=== PATIENT | female | born 1975 | race Caucasian/White ===

== ENCOUNTER 2016-10-16 13:45 | Emergency (ER) | payer OTHER ==
[2016-10-16 14:12] VITALS: BP 145/76
--- NOTE | 2016-10-16 14:17 | UC ---
Throat Pain/Nasal Kash HPI - HPI Summary HPI Summary: right ear pain radiating in to right side of throat has been going on for 1 week , seen PCP on Sunday was told she had fluid behind her ear--offered some treatment advise but has not had time yet to start any treatments--she is concerned it is infected - History of Current Complaint Chief Complaint: UCRespiratory Stated Complaint: THROAT,EAR COMPLAINT Time Seen by Provider: 10/16/16 14:16 Hx Obtained From: Patient Hx Last Menstrual Period: 10/02/16 ?: No Onset/Duration: Sudden Onset, Lasting Days, Still Present Severity: Moderate Pain Intensity: 7 Pain Scale Used: 0-10 Numeric Cough: Nonproductive - Allergies/Home Medications Allergies/Adverse Reactions: Allergies Allergy/AdvReac Type Severity Reaction Status Date / Time Clarithromycin [From Biaxin] Allergy Unknown Verified 10/16/16 14:13 Reaction Details Penicillins Allergy Anaphylatic Verified 10/16/16 14:13 Shock Sulfamethoxazole Allergy Palpitation Verified 10/16/16 14:13 w/Trimethoprim s [From Bactrim] Home Medications: Home Medications Nadolol TAB* [Corgard TAB*] 40 mg PO DAILY 10/16/16 [History Confirmed 10/16/16] PMH/Surg Hx/FS Hx/Imm Hx Previously Healthy: No Endocrine History Of: Denies: Diabetes - gestational diabetes Cardiovascular History Of: Reports: Hypertension - history, better with until yesterday Psychological History Of: Reports: Anxiety, Depression - Surgical History Surgical History: Yes Surgery Procedure, Year, and Place: R toe surgery. - Family History Known Family History: Positive: None - Social History Occupation: Employed Full-time Lives: With Family Alcohol Use: Rare Substance Use Type: None Smoking Status (MU): Former Smoker Type: Cigarettes Amount Used/How Often: 3 cig./day Have You Smoked in the Last Year: No When Did the Patient Quit Smoking/Using Tobacco: 2 YRS - Immunization History Most Recent Influenza Vaccination: unknown Most Recent Tetanus Shot: 03/04 Most Recent Pneumonia Vaccination: never Review of Systems Constitutional: Negative Skin: Negative Eyes: Negative ENT: Sore Throat - right side, Ear Ache - right Respiratory: Negative Cardiovascular: Negative Gastrointestinal: Negative Genitourinary: Negative Motor: Negative Neurovascular: Negative Musculoskeletal: Negative Neurological: Negative Psychological: Negative All Other Systems Reviewed And Are Negative: Yes Physical Exam Triage Information Reviewed: Yes Appearance: Well-Appearing, No Pain Distress, Well-Nourished Vital Signs: Initial Vital Signs Temp 97.7 F 10/16/16 14:04 Pulse 68 10/16/16 14:04 Resp 16 10/16/16 14:04 BP 145/76 10/16/16 14:04 Pulse Ox 100 10/16/16 14:04 Vital Signs Reviewed: Yes Eye Exam: Normal Eyes: Positive: Conjunctiva Clear ENT Exam: Normal ENT: Positive: Normal ENT inspection, Hearing grossly normal, Pharynx normal, TMs normal - fluid behind right TM. Negative: Nasal congestion, Nasal drainage , Tonsillar swelling, Tonsillar exudate, Trismus, Muffled/hoarse voice Dental Exam: Normal Neck exam: Normal Neck: Positive: Supple, Nontender, No Lymphadenopathy Respiratory Exam: Normal Respiratory: Positive: Chest non-tender, Lungs clear, Normal breath sounds, No respiratory distress, No accessory muscle use Cardiovascular Exam: Normal Cardiovascular: Positive: RRR, No Murmur, Pulses Normal, Brisk Capillary Refill Musculoskeletal Exam: Normal Musculoskeletal: Positive: Strength Intact, ROM Intact, No Edema Neurological Exam: Normal Neurological: Positive: Alert, Muscle Tone Normal Psychological Exam: Normal Skin Exam: Normal Diagnostics - Laboratory Diagnostic Studies Completed/Ordered: RST (-) Throat Pain/Nasal Course/Dx - Course Assessment/Plan: beginin Nadolol!, Mucinex D, Flonase increase fluids, follow with pcp - Differential Dx/Diagnosis Differential Diagnosis/HQI/PQRI: Laryngitis, Otitis Media, Pharyngitis, Sinusitis, URI Provider Diagnoses: Eustation tube dysfunction (R), HYpertension-non adherant with treatment Discharge - Discharge Plan Condition: Stable Disposition: HOME Prescriptions: Fluticasone NASAL SPRAY 50MCG* [Flonase NASAL SPRAY 50MCG*] 2 spray BOTH NARES DAILY #1 btl Pseudoephedrine-Guaifenesin [Mucinex D 60-600 mg] 1 tab PO BID PRN #30 tab PRN Reason: congestion/ Patient Education Materials: Fluticasone (Into the nose), DASH Eating Plan (ED) , Hypertension (ED), Serous Otitis Media (ED), How to Use Nasal Stuart (ED) Referrals: Asaf Mendoza MD [Primary Care Provider] - 2 Weeks
== END 2016-10-16 15:06 | disposition home or self-care (01) ==
LOC: UCCORT 13:45
DX: H69.91 Unspecified Eustachian tube disorder, right ear (principal); I10 Essential (primary) hypertension; F41.9 Anxiety disorder, unspecified; F32.9 Major depressive disorder, single episode, unspecified; Z87.891 Personal history of nicotine dependence; Z88.3 Allergy status to other anti-infective agents; Z88.0 Allergy status to penicillin
CPT/HCPCS: 87651; 99212; G0463

== ENCOUNTER 2017-10-26 15:19 | Emergency (ER) | payer OTHER ==
[2017-10-26 15:43] VITALS: BP 144/81
--- NOTE | 2017-10-26 16:47 | UC ---
Complaint Female HPI - HPI Summary HPI Summary: Patient presents to urgent care reporting intermittent dysuria with urination for the last 2 days. Patient states she also has her period which is rather heavy. Patient states her periods have been increasingly heavy flow for the last year. Patient states she has an appointment with her [facility] scheduled in November. Patient denies nausea, lightheadedness, shortness of breath. Patient states she does not have urinary frequency or urgency. Patient does have lower abdominal cramping that she attributes to her menses. Patient denies any back pain. No fever. Patient's last UTI was greater than one year ago. Patient has been on other antibiotics including doxycycline 2 months ago for sinus infection. Patient without any other concerns this visit. She states she took Motrin this morning for discomfort. Patient has not taken anything else today. Patient denies any other vaginal discharge other than blood. No vaginal itching. Medications reviewed this visit. - History Of Current Complaint Chief Complaint: UCGU Stated Complaint: URINARY Time Seen by Provider: 10/26/17 16:18 Hx Obtained From: Patient Hx Last Menstrual Period: 10/23/17 Onset/Duration: Gradual Onset Timing: Intermittent Severity Initially: Moderate Severity Currently: Moderate Pain Intensity: 4 Pain Scale Used: 0-10 Numeric Character: Cramping Aggravating Factor(s): Urination Associated Signs And Symptoms: Positive: Vaginal Bleeding/Discharge - Allergies/Home Medications Allergies/Adverse Reactions: Allergies Allergy/AdvReac Type Severity Reaction Status Date / Time clarithromycin [From Biaxin] Allergy Unknown Verified 10/26/17 16:34 Reaction Details Penicillins Allergy Anaphylatic Verified 10/26/17 16:34 Shock sulfamethoxazole Allergy Palpitation Verified 10/26/17 16:35 [From Bactrim] s trimethoprim [From Bactrim] Allergy Palpitation Verified 10/26/17 16:35 s vancomycin Allergy Hives/Diff. Verified 10/26/17 16:40 Breathing/I tching beach Allergy Itching Uncoded 10/26/17 15:35 PMH/Surg Hx/FS Hx/Imm Hx Previously Healthy: Yes - Surgical History Surgical History: Yes Surgery Procedure, Year, and Place: R toe surgery. - Family History Known Family History: Positive: None - Social History Occupation: Employed Full-time Lives: With Family Alcohol Use: Rare Substance Use Type: None Smoking Status (MU): Former Smoker Type: Cigarettes Amount Used/How Often: 3 cig./day Have You Smoked in the Last Year: No When Did the Patient Quit Smoking/Using Tobacco: 2013 - Immunization History Most Recent Influenza Vaccination: unknown Most Recent Tetanus Shot: 03/04 Most Recent Pneumonia Vaccination: never Review of Systems Constitutional: Negative Cardiovascular: Negative Gastrointestinal: Negative Genitourinary: Dysuria, Vaginal/Penile Discharge - heavy menses All Other Systems Reviewed And Are Negative: Yes Physical Exam - Summary Physical Exam Summary: Vital Signs Reviewed: Yes A+Ox3, no distress Eyes: Conjunctiva Clear ENT: Hearing grossly normal neck: supple Respiratory: Positive: No respiratory distress, No accessory muscle use Cardiovascular: skin color reflect adequate perfusion, regular abd soft + BS no guarding, no rebound. mild lower abdominal suprapubic pain. no cva tenderness Musculoskeletal Exam: MATTHEWS x 4 without difficulty Neurological: Positive: Alert, ambulatory without difficulty Psychological: Positive: Normal Response To Family Skin: Positive: no rash, no ecchymosis Triage Information Reviewed: Yes Vital Signs: Initial Vital Signs Temp 98.5 F 10/26/17 15:36 Pulse 65 10/26/17 15:36 Resp 14 10/26/17 15:36 BP 144/81 10/26/17 15:36 Pulse Ox 100 10/26/17 15:36 Complaint Female Dx - Course Course Of Treatment: Patient presents with today N dysuria with urination. Patient also states she has heavy menses. Patient without nausea, lightheadedness, back pain, or fever. Urinalysis consistent with bladder infection. Will start Macrobid and Pyridium. Discussed with patient color change related to Pyridium. Discussed with patient regarding menstrual heavy bleeding and cramping. Patient without lightheadedness. Encouraged hydration non-caffeinated nonalcoholic. Discussed with patient it becomes lightheaded nausea or pain bleeding is uncontrolled should seek medical care emergency department by 911. Understanding and agreement with plan. Patient with a follow-up scheduled with the [facility] group in [place]. The patient is agreement with plan. Patient also noted to have a mildly elevated blood pressure at this visit. Recommend f/u with PCP - Differential Dx/Diagnosis Provider Diagnoses: dysuria. menorrhagia Discharge - Sign-Out/Discharge Documenting (check all that apply): Discharge/Admit/Transfer - Discharge Plan Condition: Stable Disposition: HOME Prescriptions: Nitrofurantoin Monohyd/M-Cryst [Macrobid 100 mg Capsule] 100 mg PO BID #14 cap Phenazopyridine TAB* [Pyridium 100 mg TAB*] 100 mg PO TID PRN #9 tab PRN Reason: burning with urination Patient Education Materials: Urinary Tract Infection in Women (ED) Referrals: Asaf Mendoza MD [Primary Care Provider] - Additional Instructions: - stay well hydrated - drink plenty of non-alcoholic, non caffinated beverages - your urine will be further tested - if you require any changes to your treatment, we will contact you - this usually take 2 days - Contact your primary doctor to arrange a follow-up appointment next week. Contact your doctor or return with questions or concerns - Take your antibiotics exactly as prescribed until gone - Take pyridium as prescribed for discomfort. This will make your urine blaze orange - this is normal - Okay to alternate ibuprofen (Advil, Motrin) and Tylenol every 3 hours for pain. Take with food - Call your doctor or return with questions or concerns - Billing Disposition and Condition Condition: STABLE Disposition: Home
== END 2017-10-26 16:47 | disposition home or self-care (01) ==
LOC: UCCORT 15:19
DX: N92.0 Excessive and frequent menstruation with regular cycle (principal); R30.0 Dysuria; Z88.1 Allergy status to other antibiotic agents; Z88.0 Allergy status to penicillin; Z88.2 Allergy status to sulfonamides; Z91.09 Other allergy status, other than to drugs and biological substances; Z87.891 Personal history of nicotine dependence
CPT/HCPCS: 81003; 87077; 87086; 87186; 99212; G0463

== ENCOUNTER 2018-03-17 16:54 | Emergency (ER) | payer OTHER ==
[2018-03-17 17:12] VITALS: BP 145/77
--- NOTE | 2018-03-17 17:38 | UC ---
Complaint Female HPI - HPI Summary HPI Summary: C/O UTI symptoms x 1 day with frequency and urgency. Is about to get menses. Also C/O URI symptoms. - History Of Current Complaint Chief Complaint: UCGU Stated Complaint: URINARY Hx Obtained From: Patient Hx Last Menstrual Period: 02/18/18 ?: No Onset/Duration: Sudden Onset, Lasting Days - 1 Timing: Constant Severity Initially: Mild Severity Currently: Mild Pain Intensity: 0 Character: Sharp, Burning Aggravating Factor(s): Urination Associated Signs And Symptoms: Positive: Back Pain - Allergies/Home Medications Allergies/Adverse Reactions: Allergies Allergy/AdvReac Type Severity Reaction Status Date / Time Bleach (Sodium Hypochlorite) Allergy Rash Verified 03/17/18 17:08 clarithromycin [From Biaxin] Allergy Unknown Verified 10/26/17 16:34 Reaction Details Penicillins Allergy Anaphylatic Verified 10/26/17 16:34 Shock sulfamethoxazole Allergy Palpitation Verified 10/26/17 16:35 [From Bactrim] s trimethoprim [From Bactrim] Allergy Palpitation Verified 10/26/17 16:35 s vancomycin Allergy Hives/Diff. Verified 10/26/17 16:40 Breathing/I tching PMH/Surg Hx/FS Hx/Imm Hx Endocrine History: Diabetes - in Cardiovascular History: Hypertension - Surgical History Surgical History: Yes Surgery Procedure, Year, and Place: R toe surgery. - Family History Known Family History: Positive: Hypertension - Social History Occupation: Employed Full-time Lives: With Family Alcohol Use: Rare Substance Use Type: None Smoking Status (MU): Former Smoker Type: Cigarettes Amount Used/How Often: 3 cig./day Have You Smoked in the Last Year: No When Did the Patient Quit Smoking/Using Tobacco: 2013 - Immunization History Most Recent Influenza Vaccination: unknown Most Recent Tetanus Shot: 03/04 Most Recent Pneumonia Vaccination: never Review of Systems ENT: Nasal Discharge Respiratory: Cough Genitourinary: Dysuria, Frequency, Urgency Is Patient Immunocompromised?: No All Other Systems Reviewed And Are Negative: Yes Physical Exam Triage Information Reviewed: Yes Appearance: Well-Appearing, No Pain Distress, Well-Nourished Vital Signs: Initial Vital Signs Temp 97.1 F 03/17/18 17:05 Pulse 69 03/17/18 17:05 Resp 16 03/17/18 17:05 BP 145/77 03/17/18 17:05 Pulse Ox 100 03/17/18 17:05 Vital Signs Reviewed: Yes Eyes: Positive: Conjunctiva Clear ENT: Positive: Pharynx normal, TMs normal Neck exam: Normal Respiratory Exam: Normal Cardiovascular Exam: Normal Abdomen Description: Negative: Nontender - mild suprapubic discomfort, CVA Tenderness (R), CVA Tenderness (L) Bowel Sounds: Positive: Present Musculoskeletal Exam: Normal Neurological Exam: Normal Psychological Exam: Normal Skin Exam: Normal Complaint Female Dx - Differential Dx/Diagnosis Differential Diagnosis/HQI/PQRI: Appendicitis, Ureteral Stone, Urinary Tract Infection Provider Diagnoses: Acute cystitis. Acute URI Discharge - Sign-Out/Discharge Documenting (check all that apply): Patient Departure All imaging exams completed and their final reports reviewed: No Studies - Discharge Plan Condition: Stable Disposition: HOME Prescriptions: Nitrofurantoin Monohyd/M-Cryst [Macrobid 100 mg Capsule] 100 mg PO BID #10 cap Patient Education Materials: Urinary Tract Infection in Women (ED), Nitrofurantoin Combination (By mouth), Upper Respiratory Infection (ED) Referrals: Asaf Mendoza MD [Primary Care Provider] - - Billing Disposition and Condition Condition: STABLE Disposition: Home
== END 2018-03-17 17:54 | disposition home or self-care (01) ==
LOC: UCCORT 16:54
DX: N30.00 Acute cystitis without hematuria (principal); J06.9 Acute upper respiratory infection, unspecified; I10 Essential (primary) hypertension; Z88.0 Allergy status to penicillin; Z88.2 Allergy status to sulfonamides; Z91.048 Other nonmedicinal substance allergy status; Z88.1 Allergy status to other antibiotic agents; Z87.891 Personal history of nicotine dependence
CPT/HCPCS: 81003; 87086; 99212; G0463

== ENCOUNTER 2018-03-29 18:32 | Emergency (ER) | payer OTHER ==
--- OUTSIDE RECORDS SUMMARY | 2018-03-29 18:45 | XMS REPORT | Continuity of Care Document ---
:1975 External Reference #:[id number] Author Name Mariana Ruvalcaba Care Team Providers Name Role Phone Asaf Mendoza MD Primary Care Physician Unavailable Payers Type Date Identification Numbers Payment Provider Subscriber Effective: Policy Number: [id number] [facility] Nayan Torres 2011 Expires: 2012 Group Number: [id number] [address] [address] PayID: [id number] [place] [address] Effective: 2012 Policy Number: [id number] [facility] Nayan Torres PayID: [id number] [address] [place] [address] Expires: 2013 Policy Number: [id number] Medicaid [place] Nayan Torres PayID: [id number] [address] [place] [address] Policy Number: [id number] Medicaid [place] Nayan Torres PayID: [id number] [address] [place] [address] Advance Directives Description No Information Available Problems Date Description Provider Status Onset: 09/09/2014 Multigravida Belén Coe NP Active Onset: 02/18/2015 Abnormal glucose tolerance test Marcelo Madsen CNM Active during - baby not yet delivered Onset: 04/25/2012 Vulval and/or perineal Shiv López M.D. Inactive noninflammatory disorders Inactive: 02/10/2014 Onset: 02/10/2014 Hypertensive disorder Marcelo Madsen CNM Resolved Resolved: 09/09/2014 Family History Date Family Member(s) Problem(s) Comments Father Non Hodgkins Lymphoma Mother A&W First Son A&W Second Son A&W First Daughter A&W First Brother A&W First Sister A&W Second Sister A&W Paternal Grandfather due to Cancer () Paternal Grandmother due to Cancer, Kidney () Paternal Grandmother due to Throat Cancer () Maternal Grandfather Rheumatoid Arthritis Maternal Grandfather due to Stroke () Maternal Grandfather Heart Disease Maternal Grandmother A&W Social History Type Date Description Comments Sex Unknown Education Highest level of education completed is 1 year of college Marital Status Patient is single Living Situation Lives with sons and daughter Pets Household pets include a dog 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[place] [employer] Cigarette Use Former Smoker Alcohol Rarely drinks alcohol Tobacco Use Start: Unknown End: Patient is a former smoker Unknown Drug Use Denies drug use Smoking Status Reviewed: 03/29/16 Patient is a former smoker Daily Caffeine Drinks on average 2 cups of coffee a day Exercise Type/Frequency Exercises rarely Current Seat Belt/Car Seat Always uses a seat belt Currently Active The patient is currently sexually active Last [place] Last sexual intercourse was 2 years ago JESSI: 09/02/2014 Estimated Date of Delivery Based on LMP Allergies, Adverse Reactions, Alerts Date Description Reaction Status Severity Comments 12/09/2004 Penicillin Active 12/14/2005 Biaxin Active 10/03/2017 Vancomycin severe itching Active Medications Medication Date Status Form Strength Qnty SIG Indications Ordering Provider Blisoshira Martinez 11/29/ Active Tablets 1-20mg-mcg 84tab 1 by mouth Z30.011 Shiv Lopez 06/09 2017 s every day Sonia López Nadolol 00// Active Tablets 20mg Unknown 0000 Lo Loestrin 11/29/ Hx Tablets 1mg-10 mcg 140ta 1 by mouth Z30.011 Shiv Martinez 2017 - / 10 mcg bs every day Rene 11/29/ Sonia 2018 Nystatin 03/29/ Hx Ointment [id number] 15gm use three Phaelon 2016 - /GM times a day MD Ivone 11/29/ to affected 2018 area as needed pruritis Terconazole 10/ Hx Cream 0.8% 20gm 1 applicator Mariana 2015 - per vagina Nisreen 03/03/ at bedtime x , CNM 2016 3 No Active 05/11/ Hx Phaelon Medications 2014 - MD Ivone 2015 Insulin 02/25/ Hx Misc 30G X 1/2" 100un use as Jenae Syringe/0.5ML 2015 - 0.5 ML its directed Carpio, /30G X 1/2" 2014 Humulin N 02/25/ Hx Suspension 100Unit/ML 40ml 2 units sub Jenae 2014 - at bedtime Carpio, 2014 Humulin N 02/25/ Hx Suspension 100Unit/ML 10ml 2 units sub Jenae 2014 - at bedtime Balaji, 2014 Blood Glucose 02/05/ Hx Kit 1unit Use as Mahrie Monitor 2015 - s directed qid Cale, 04/12/ CNM 2014 Blood Glucose 02/05/ Hx Strips 100un for use with Christal Test 2014 - its blood Cookie, 04/12/ glucose LM 2014 meter. use as directed six times a day. Lancets 02/05/ Hx Misc 100un For use with Christal 2014 - its blood Cookie, 03/01/ glucose LM 2014 meter. Use as directed qid No Active 09/09/ Hx Unknown Medications 2014 - 2014 Misoprostol 02/12/ Hx Tablets 200mcg 3tabs Take 3 tabs Bucky 2014 - in the am if , Mariana, 04/06/ no 2013 miscarriage overnight. Allow the tabs to dissolve in your cheek for at least 30 min. Oxycodone-Baron 02/12/ Hx Tablets 5-325mg 8tabs take 1 tabs Bucky taminophen 2014 - by mouth , Mariana, 04/06/ q4-6hrs as 2014 needed pain Vistaril 01/20/ Hx Capsules 50mg 30cap Take QHS prn Aubrey 2014 - s insomnia MD Ivone 2013 Fluconazole 01/11/ Hx Tablets 150mg 1tabs take one tab Aubrey 2011 - po now MD Ivone 2012 Ocella 12/11/ Hx Tablets 3-0.03mg 1pack 1 tablet Nancy 2008 - daily Gutierrez, 02/01/ CNM 2008 Mycolog-II 03/02/ Hx Ointment 100,000Uni 30gm apply to Demar Clinton 2006 - ts;0.1% affected Juan Miguel 12/17/ area 3xday Sonia MOODY 2006 Metrogel 03/02/ Hx Gel 0.75% 1 applicator Demar Clinton Vaginal 2006 - qhs x 5 days Juan Miguel 12/17/ Sonia MOODY 2006 Lynne 28 Day 10/28/ Hx Tablets 0.03mg;3 28tab 1 po qd Latia 2005 - 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, 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 Mima / Hx Tablets 180mg 0tabs 1 po qd Unknown - 2012 Lisinopril / Hx 10mg Unknown - 2013 Cymbalta / Hx Unknown - 2011 Melatonin / Hx Unknown Extra 0000 - Strength 2013 Xanax / Hx Tablets 0.5mg 5tabs take 1 tab Baclawski 0000 - every night , Mariana, 05/21/ at bedtime 2014 as needed Ambien CR / Hx Unknown - 2014 Medications Administered in Office Medication Date Status Form Strength Qnty SIG Indications Ordering Provider PT SCRN Tbco Administered Injection Shiv Dumont as Non User 018 Sonia López Immunizations CPT Code Status Date Vaccine Lot # [id number] Given 03/16/2015 Tetnus, Diptheria Toxoids And Acellular Pertussis, [id number] PT > 7Yrs Old Vital Signs Date Vital Result Comment 03/27/2018 10:51am BP Systolic 132 mmHg BP Diastolic 84 mmHg Height 63 inches 5'3" Weight 168.00 lb BMI (Body Mass Index) 29.8 kg/m2 Last Menstrual Period [id number] 4 Parity 3 11/29/2017 10:27am BP Systolic 120 mmHg BP Diastolic 66 mmHg Height 63 inches 5'3" Weight 164.00 lb BMI (Body Mass Index) 29.0 kg/m2 Last Menstrual Period 7313046 4 Parity 3 03/29/2016 1:51pm BP Systolic 124 mmHg BP Diastolic 68 mmHg Height 63 inches 5'3" Weight 164.00 lb BMI (Body Mass Index) 29.0 kg/m2 Last Menstrual Period 9659465 4 Parity 3 09/22/2015 2:22pm BP Systolic 130 mmHg BP Diastolic 90 mmHg Height 63 inches 5'3" Weight 160.00 lb BMI (Body Mass Index) 28.3 kg/m2 Last Menstrual Period 7161995 4 Parity 3 09/22/2015 2:03pm 4 05/11/2015 3:02pm BP Systolic 148 mmHg BP Diastolic 88 mmHg Height 63 inches 5'3" Weight 164.00 lb BMI (Body Mass Index) 29.0 kg/m2 4 Parity 3 09/09/2014 9:40am BP Systolic 122 mmHg BP Diastolic 78 mmHg Height 63 inches 5'3" Weight 178.00 lb BMI (Body Mass Index) 31.5 kg/m2 Last Menstrual Period 4795364 4 Parity 2 05/07/2014 9:26am BP Systolic 142 mmHg BP Diastolic 84 mmHg Height 63 inches 5'3" Weight 174.00 lb BMI (Body Mass Index) 30.8 kg/m2 Last Menstrual Period 1921401 3 Parity 2 04/06/2014 12:59pm BP Systolic 124 mmHg BP Diastolic 78 mmHg Height 62.75 inches 5'2.75" Weight 173.00 lb BMI (Body Mass Index) 30.9 kg/m2 Last Menstrual Period 8123883 3 Parity 2 02/12/2014 11:12am BP Systolic 142 mmHg BP Diastolic 98 mmHg Height 62.75 inches 5'2.75" Weight 175.00 lb BMI (Body Mass Index) 31.2 kg/m2 3 Parity 2 01/20/2014 10:30am BP Systolic 138 mmHg BP Diastolic 86 mmHg Height 62.75 inches 5'2.75" Weight 173.00 lb BMI (Body Mass Index) 30.9 kg/m2 Last Menstrual Period 1116765 3 Parity 2 08/15/2013 3:08pm BP Systolic 142 mmHg BP Diastolic 74 mmHg Height 62.75 inches 5'2.75" Weight 176.00 lb BMI (Body Mass Index) 31.4 kg/m2 Last Menstrual Period 8198827 2 Parity 2 01/17/2013 3:22pm BP Systolic 110 mmHg BP Diastolic 72 mmHg Height 62.75 inches 5'2.75" Weight 176.00 lb BMI (Body Mass Index) 31.4 kg/m2 Last Menstrual Period 0443339 2 Parity 2 06/07/2012 2:55pm BP Systolic 126 mmHg BP Diastolic 82 mmHg Height 62.75 inches 5'2.75" Weight 183.00 lb BMI (Body Mass Index) 32.7 kg/m2 Last Menstrual Period 7433447 2 Parity 2 02/23/2012 1:01pm BP Systolic 122 mmHg BP Diastolic 78 mmHg Height 62.75 inches 5'2.75" Weight 189.00 lb BMI (Body Mass Index) 33.7 kg/m2 Last Menstrual Period 8777970 2 Parity 2 01/12/2012 2:36pm BP Systolic 130 mmHg BP Diastolic 84 mmHg Height 62.75 inches 5'2.75" Weight 190.00 lb BMI (Body Mass Index) 33.9 kg/m2 Last Menstrual Period 1407932 2 Parity 2 05/03/2010 9:58am BP Systolic 122 mmHg BP Diastolic 78 mmHg Height 62.5 inches 5'2.50" Weight 188.00 lb BMI (Body Mass Index) 33.8 kg/m2 Last Menstrual Period 9980067 2 Parity 2 02/01/2009 11:41am BP Systolic 120 mmHg BP Diastolic 74 mmHg Height 63 inches 5'3" Weight 177.00 lb BMI (Body Mass Index) 31.4 kg/m2 Last Menstrual Period 7863030 12/05/2007 1:04pm BP Systolic 130 mmHg BP Diastolic 90 mmHg Height 63 inches 5'3" Weight 165.00 lb BMI (Body Mass Index) 29.2 kg/m2 Last Menstrual Period 2235534 2 Parity 2 11/27/2006 8:25am BP Systolic 118 mmHg BP Diastolic 70 mmHg Height 63 inches 5'3" Weight 164.00 lb BMI (Body Mass Index) 29.0 kg/m2 03/02/2006 1:37pm BP Systolic 112 mmHg BP Diastolic 62 mmHg Height 63 inches 5'3" Weight 160.00 lb BMI (Body Mass Index) 28.3 kg/m2 12/14/2005 2:49pm BP Systolic 120 mmHg BP Diastolic 84 mmHg Height 63 inches 5'3" Weight 157.00 lb BMI (Body Mass Index) 27.8 kg/m2 2 Parity 2 12/09/2004 12:58pm BP Systolic 122 mmHg BP Diastolic 80 mmHg Height 63 inches 5'3" Weight 153.00 lb BMI (Body Mass Index) 27.1 kg/m2 Last Menstrual Period 8642006 2 Parity 2 Results Test Date Facility Test Result H/L Range Note Laboratory test 11/29/2017 [facility] Cytology SEE RESULT [address] [place] [address] BELOW [phone] Laboratory test 09/29/2015 [facility] TSH 1.47 ?IU/mL 0.34- 5.60 2 [address] [place], [place] [id number] [phone] T4 Free 1.02 ng/dL 0.61-1.12 3 Glucose 09/29/2015 [facility] Glucose (SEE NOTE) 4 Tolerance 2HR [place] [address] Tolerance Test [phone] 2HR Comp Metabolic 03/26/2015 [facility] Sodium 133 mmol/L 133- 14 [place] [address] 5 [phone] Potassium 3.4 mmol/L Low 3.5-5.0 Chloride 104 mmol/L 101-111 Co2 Carbon Dioxide 20 mmol/L Low 22-32 Anion Gap 9 mmol/L 2-11 Glucose 90 mg/dL 70-100 Blood Urea Nitrogen 9 mg/dL 6-24 Creatinine 0.55 mg/dL 0.51-0.95 BUN/Creatinine Ratio 16.4 8-20 Calcium 9.1 mg/dL 8.6-10.3 Total Protein 6.4 g/dL 6.4-8.9 Albumin 3.4 g/dL 3.2-5.2 Globulin 3.0 g/dL 2-4 Albumin/Globulin Ratio 1.1 1-3 Total Bilirubin 0.30 mg/dL 0.2-1.0 Alkaline Phosphatase 176 U/L High 34-104 Egfr Non- 123.0 >60 Egfr 158.2 >60 5 Laboratory test 03/26/2015 [facility] Uric Acid 5.4 mg/dL 2.3 -6.6 [place] [address] [phone] CBC With No Diff 03/26/2015 [facility] White Blood 8.3 10^3/uL 4.8-10.8 [place] [address] Count [phone] Red Blood Count 4.15 10^6/uL 4.0-5.4 Hemoglobin 10.4 g/dL Low 12.0-16.0 Hematocrit 33 % Low 35-47 Mean Corpuscular Volume 78 fL Low 80-97 Mean Corpuscular Hemoglobin 25 pg Low 27-31 Mean Corpuscular HGB Conc 32 g/dL 31-36 Red Cell Distribution Width 16 % High 10.5-15 Platelet Count 294 10^3/uL 150-450 Mean Platelet Volume 8 um3 7.4-10.4 Creatinine 03/26/2015 [facility] Creatinine 0.55 mg/dL 0.51- 0.95 [place] [address] [phone] Egfr Non- 123.0 >60 Egfr 158.2 >60 6 Laboratory test finding 03/26/2015 [facility] Alt 6 U/L Low 7- 52 [place] [address] [phone] Ast 13 U/L 13-39 Total Protein 24HR 03/25/2015 [facility] Urine Collection Time 24 [place] [address] [phone] Urine Total Volume 1150 mL Urine Random Total Protein 16 mg/dL Urine Total Protein/24HR 184 mg/24Hr High 0-165 Laboratory test 03/10/2015 [facility] Genital For GRP B SEE RESULT [address] [place] [address] Strep Only BELOW [phone] Glucose Tolerance 02/04/2015 [facility] GTT 3HR (SEE NOTE) 8 3[place] [address] Gestational [phone] Laboratory test 01/18/2015 [facility] Glucose 1 HR Post 158 mg/ dL 70-16 [place] [address] Prandial 0 [phone] CBC With No Diff 01/18/2015 [facility] White Blood Count 10.2 4.8-1 [place] [address] 10^3/uL 0.8 [phone] Red Blood Count 3.81 10^6/uL Low 4.0-5.4 Hemoglobin 10.7 g/dL Low 12.0-16.0 Hematocrit 33 % Low 35-47 Mean Corpuscular Volume 86 fL 80-97 Mean Corpuscular Hemoglobin 28 pg 27-31 Mean Corpuscular HGB Conc 33 g/dL 31-36 Red Cell Distribution Width 15 % 10.5-15 Platelet Count 261 10^3/uL 150-450 Mean Platelet Volume 8 um3 7.4-10.4 Maternal Serum Afp 10/29/2014 [facility] Interpretation SEE NOTE 9 Risk For NTD (Osb) LESS THAN 1:5000 10 Afp,Serum 22.7 NG/ML Adjusted Mom 0.70 11 Comment SEE NOTE 12 Date Of 1975 JESSI 04/09/2015 JESSI Determined By ULTRASOUND Gestational Age 16.9 WEEKS Weight 178 LBS Race =W Insulin Dependent Diabetic NO Repeat Sample NO Number Of Fetuses 1 History Of NTD NO Date Of Draw 10/29/2014 [employer] Financial Analyst SEE NOTE 13 Lead 10/07/2014 [facility] Lead <1 g/dL 0-9 [place] [address] [phone] Laboratory test 10/07/2014 [facility] Hemoglobin A1c 5.5 % Less than [address] [place] [address] 6.0 [phone] CBC With No 10/07/2014 [facility] White Blood 10.0 4.8-10.8 [place] [address] Count 10^3/uL [phone] Red Blood Count 4.38 10^6/uL 4.0-5.4 Hemoglobin 12.2 g/dL 12.0-16.0 Hematocrit 37 % 35-47 Mean Corpuscular Volume 85 fL 80-97 Mean Corpuscular Hemoglobin 28 pg 27-31 Mean Corpuscular HGB Conc 33 g/dL 31-36 Red Cell Distribution Width 15 % 10.5-15 Platelet Count 279 10^3/uL 150-450 Mean Platelet Volume 9 um3 7.4-10.4 Type And Screen 10/07/2014 [facility] [place] [address] [phone] Antibody Screen NEGATIVE RPR 09/16/2014 [facility] Syphilis [place] [address] [phone] RPR Nonreactive Nonreactive RPR Titer TNP Pediatric/Maternal YES Laboratory 09/16/2014 [facility] Hepatitis B Nonreactive Nonreactive 15 [place] [address] Surface [phone] Antigen Rubella Screen Immune IU/mL Immune HIV 1/2 AB 09/16/2014 [facility] HIV 1 2 Nonreactive Nonreactive 16 [place] [address] Antibody [phone] Laboratory 09/16/2014 [facility] TSH (Thyroid 0.75 IU/mL 0.34 -5.60 [place] [address] Stimulating [phone] Horm) [id number] 09/16/2014 [facility] Gestational 10 Plus (CO) Age (Weeks) Gestational Age (Days) 3 Number Of Fetuses 1 Maternal Height (Feet) 63 Maternal Height (Inches) 0 Maternal Weight (LBS) 178 Reason(S) For High Risk ADVANCED MATERNA <SEE NOTE> 17 Opt-Out Microdels 16,22 NO Use Leftover Sample/Data NO Additional Comments HEIGHT 63 Trisomy 21 (T21) Negative Trisomy 18 (T18) Negative Trisomy 13 (T13) Negative Interpretation SEE NOTE 18 Y Chromosome Detected Y. CHR. Interpretation SEE NOTE 19 Additional Findings SEE NOTE 20 Addl Findings Interp N/A Addl Findings Note N/A Artificial Fly Tier Comments N/A Approved By SEE NOTE 21 Test Method SEE NOTE 22 About This Test SEE NOTE 23 Performance SEE NOTE 24 Performance Data SEE NOTE 25 Limitations Of The Test SEE NOTE 26 Note SEE NOTE 27 References SEE NOTE 28 GC/Chlamydia Dna 09/09/2014 [facility] Ch[place] [address] trachomatis Rna [phone] Neisseria gonorrhoeae (GC) Rna Negative Negative 29 Laboratory 09/09/2014 [facility] Cytology RUN DATE: 30 [place] [address] SEE [phone] NOTE> Urine Culture 09/09/2014 [facility] Urine Culture (SEE NOTE) 31 [place] [address] Sensitivities [phone] Laboratory 05/07/2014 [facility] Genital (SEE NOTE) 32 [place] [address] Culture [phone] Laboratory 02/12/2014 [facility] Beta HCG 08766.00 High 0.0- 5.0 33 [place] [address] Quantitative IU/mL [phone] Laboratory 02/10/2014 [facility] Beta HCG 46757.00 High 0.0- 5.0 34 [place] [address] Quantitative IU/mL [phone] HIV 1/2 AB 01/29/2014 [facility] HIV 1 2 Nonreactive Nonreactive 35, [place] [address] Antibody 36 [phone] Laboratory 01/29/2014 [facility] TSH (Thyroid 1.32 IU/mL 0.34 -5.60 [place] [address] Stimulating [phone] Horm) Free T4 0.71 ng/mL 0.61-1.12 Comp Metabolic Panel 01/29/2014 [facility] Sodium 136 mmol/L 133-145 [place], [place] [address] [phone] Potassium 3.8 mmol/L 3.7-5.6 Chloride 103 mmol/L 101-111 Co2 Carbon Dioxide 26 mmol/L 22-32 Anion Gap 7 mmol/L 2-11 Glucose 104 mg/dL High 70-100 Blood Urea Nitrogen 9 mg/dL 6-24 Creatinine 0.54 mg/dL 0.51-0.95 BUN/Creatinine Ratio 16.7 8-20 Calcium 9.1 mg/dL 8.6-10.3 Total Protein 6.8 g/dL 6.4-8.9 Albumin 4.2 g/dL 3.2-5.2 Globulin 2.6 g/dL 2-4 Albumin/Globulin Ratio 1.6 1-3 Total Bilirubin 0.50 mg/dL 0.2-1.0 Alkaline Phosphatase 63 U/L 34-104 Alt 21 U/L 7-52 Ast 17 U/L 13-39 Egfr Non- 126.3 >60 Egfr 162.5 >60 37 Laboratory test 01/29/2014 [facility] Uric Acid 3.6 mg/dL 2.3 -6.6 [place] [address] [phone] Total Protein 01/29/2014 [facility] Urine Random 8 mg/[place] 24[place] [address] Total Protein [phone] Urine Total Protein/24HR 136 mg/24Hr 0-165 Urine Collection Time 24 Urine Total Volume 1700 mL Type And Screen 01/29/2014 [facility] Patient Blood Type A Positive [place], [place] [address]392 [phone] Antibody Screen NEGATIVE CBC With No 01/29/2014 [facility] White Blood 6.6 10^3/uL 4.8 -10.8 [place] [address] Count [phone] Red Blood Count 4.18 10^6/uL 4.0-5.4 Hemoglobin 12.2 g/dL 12.0-16.0 Hematocrit 36 % 35-47 Mean Corpuscular Volume 86 fL 80-97 Mean Corpuscular Hemoglobin 29 pg 27-31 Mean Corpuscular HGB Conc 34 g/dL 31-36 Red Cell Distribution Width 14 % 10.5-15 Platelet Count 295 10^3/uL 150-450 Mean Platelet Volume 8 um3 7.4-10.4 RPR 01/29/2014 [facility] Syphilis [place] [address] [phone] RPR Nonreactive Nonreactive RPR Titer TNP Pediatric/Maternal YES PNL No 01/29/2014 [facility] Rubella Screen Immune IU/ [place] [address] [phone] Hemoglobin A1c 5.7 % Less than 6.0 38 Hepatitis B Surface Antigen Nonreactive Nonreactive 39 Parvovirus B19 AB 01/29/2014 [facility] Parvovirus B19 AB (Igm) 0.1 index < 0.9 40 (Igg,M) Parvovirus B19 AB (Igg) 0.2 index <0.9 Cystic Fibrosis Carrier ([place]) 01/29/2014 [facility] Reported Ethnicity see note 41 CF Result see note 42 Interpretation see note 43 Mutations/Polymorphisms see note 44 Method see note 45 Reviewer see note 46 Urine Culture 01/20/2014 [facility] Urine (SEE NOTE) [address] [place] [address] Culture Sensitivities [phone] HIV 1/2 AB 10/07/2013 [facility] HIV 1 2 Nonreactive Nonreactive [address] [place] [address] Antibody [phone] Laboratory test 10/07/2013 [facility] Hepatitis B Nonreactive Nonreactive [address] [place] [address] Surface [phone] Antigen Hepatitis C Antibody Nonreactive Nonreactive 50 RPR 10/07/2013 [facility] Syphilis IgG Nonreactive Nonreactive [address] [place] [address] [phone] RPR TNP Nonreactive RPR Titer TNP Pediatric/Maternal NO Laboratory test 10/07/2013 [facility] Surgical Pathology RUN DATE: [address] [place] [address] 10/09/ <SEE [phone] NOTE> Laboratory test 08/18/2013 [facility] Cytology RUN DATE: LGSIL 53 finding [place] [address] 08/19/ <SEE [phone] NOTE> GC/Chlamydia 08/18/2013 [facility] GC/Chlamydia Rna (SEE NOTE) neg 54 Dna Probe [place] [address] [phone] HPV High Risk 08/18/2013 [facility] Human See Comment 55 [place] [address] Papillomavirus [phone] Source HPV High Risk Type 16, PCR Negative Negative HPV High Risk Type 18, PCR Negative Negative HPV Other Risk types Positive Negative 56 Laboratory test 08/15/2013 [facility] Cytology RUN DATE: LGSIL 57 finding [place] [address] 08/25/ [phone] <SEE NOTE> GC/Chlamydia 08/15/2013 [facility] GC/Chlamydia Rna (SEE NOTE) neg 58 Dna Probe [place] [address] [phone] Laboratory test 01/17/2013 [facility] Cytology RUN DATE: 59 finding [place] [address] 01/21/ [phone] <SEE NOTE> Laboratory test 06/07/2012 [facility] Surgical Pathology RUN DATE: 60 finding [place] [address] 06/11/ [phone] <SEE NOTE> Laboratory test 02/23/2012 [facility] Cytology RUN DATE: 61 finding [place] [address] 02/28/ [phone] <SEE NOTE> GC/Chlamydia 02/23/2012 [facility] GC/Chlamydia Rna (SEE NOTE) 62 Dna Probe [place] [address] [phone] Human Papilloma 02/23/2012 [facility] Human CERV Virus [place] [address] Papillomavirus [phone] Source Human Papillomavirus High Risk Positive Negative 63 Vad 05/03/2010 [facility] Vad Final NONREACTIVE Nonreactive 64, [place] [address] 65 [phone] Laboratory 05/03/2010 [facility] Syphilis IgG NON-REACTIVE Nonreactive 66 test finding [place] [address] [phone] Thyroid 05/03/2010 [facility] Thyroglobulin < 1.8 IU/[place] [address] AB 4.0 [phone] Thyroperoxidase 0.2 IU/mL Less Than 9.0 Laboratory test 05/03/2010 [facility] Thyroxine Free 0.94 NG/ML 0.61-1.24 [place] [address] [phone] TSH 0.74 MIU/ML 0.34-5.60 HSV 1 & 2 Igg Type 05/03/2010 [facility] HSV 1 Igg Herpeselect AB 0.13 INDEX 67 HSV 2 Igg Herpeselect AB 0.02 INDEX 68 Laboratory test 05/03/2010 [facility] HB S Ag W/Reflex NON-REACTIVE Non- Reactive finding Conf Hepatitis C AB 05/03/2010 [facility] Hepatitis C AB NON-REACTIVE Non- Reactive Signal To Cutoff Ratio 0.04 Less Than 1.0 HSV AB Igm 05/03/2010 [facility] HSV Igm AB,Screen NOT DETECTED 69 W/Reflex Titer GC/Chlamydia 05/03/2010 [facility] Chlamydia N 70, [address] [place] [address] Trachomatis Rna [phone] Laboratory test 05/03/2010 [facility] Cytology [address] [place] [address] -- <SEE NOTE> [phone] GC (N. Gonorrhoeae) Rna N 73 Laboratory 02/01/2009 [facility] Cytology [address] [place] [address] <SEE NOTE> [phone] Laboratory 11/27/2006 [facility] Cytology [address] [place] [address] <SEE NOTE> [phone] Pathology 08/23/2006 [facility] Surgical [address] [place] [address] Pathology <SEE NOTE> [phone] Laboratory 12/15/2005 [facility] Cytology [address] [place] [address] <SEE NOTE> [phone] Laboratory 06/25/2002 [facility] Genital For NEGATIVE [place] [address] GRP B Strep <SEE NOTE> [phone] Only Laboratory 04/23/2002 [facility] Glucose 1 HR 118 mg/dL 70-[address] [place] [address] Post Prandial 60 [phone] 1 SEE RESULT BELOW Name: NICOLASNAYAN : [address]: Shiv López MD Acct: [id number] Unit: [id number] AGE: 42 Location: [facility] Re11/29/17 SEX: F Status: REG REF SPEC: [id number] CÉSAR: 11/29/17-[address] [facility] [address]: Shiv López MD REQ: [id number] RECD: 11/29/17146 STATUS: SOUT _ ORDERED: TP IMAGE ANALYS, HPV/Thin Prep COMMENTS: [id number] Negative for Intraepithelial lesion or Malignancy A. Ectocervical/Endocervical Specimen Adequacy: Satisfactory of evaluation Transformation zone component identified Patient Information: HPV: High risk HPV RNA testing regardless of pap results. Actual Specimen Date: 11/29/17 Last Menstrual Date: 11/19/17 Date Time Test Result Flag (u) Normal Range 11/29/17 1108 @ HPV RNA Negative Negative @ @ The high-risk HPV types detected by the assay include: 16, @ 18, 31, 33, 35, 39, 45, 51, 52, 56, 58, 59, 66, and 68. Signed by and Reported on: [facility] jenkins (ASC) [phone] This Pap test was evaluated with the assistance of the [employer] Test Imaging System. Due to cytologic findings at the sustainable agriculture faculty microscope, comprehensive manual rescreening by a C D Area Supervisor may be required. The Pap Smear is a screening test designed to aid in the detection of premalignant and malignant conditions of the uterine cervix. It is not a diagnostic procedure and should not be used as the sole means of detecting cervical cancer. Both false- positive and false- negative reports do occur. Depending on your risk status, a Pap smear should be obtained and evaluated every 1-3 years. END OF REPORT DEPARTMENT OF PATHOLOGY, [address] [place] [address] Agustin Smith M.D. Director [facility] # [id number] 2 [id number] FASTING 3 [id number] FASTING 4 GLU Fast 87 Col: 09/29/15 0822 GLU 2HR 84 Col: 09/29/15 1022 GTT Interp Col: 09/29/15 0822 Oral Glucose Tolerance Test (OGTT) Levels applicable except during . Sample drawn 2 hours after a 75-gram glucose drink. GLUCOSE LEVEL INDICATION Less than 140 mg/dL Normal glucose tolerance From 140 to 200 mg/dL Impaired glucose tolerance Over 200 mg/dL Diabetes (on more than one testing occasion) 5 Because ethnic data is not always readily available, this report includes an eGFR for both -Americans and non- Americans. The National Kidney Disease Education Program (NKDEP) does not endorse the use of the MDRD equation for patients that are not between the ages of 18 and 70, are , have extremes of body size, muscle mass, or nutritional status, or are non- or non-. According to the National Kidney Foundation, irrespective of diagnosis, the stage of the disease is based on the level of kidney function: Stage Description GFR(mL/min/1.73 m(2)) 1 Kidney damage with normal or decreased GFR 90 2 Kidney damage with mild decrease in GFR 60-89 3 Moderate decrease in GFR 30-59 4 Severe decrease in GFR 15-29 5 Kidney failure <15 (or dialysis) 6 Because ethnic data is not always readily available, this report includes an eGFR for both -Americans and non- Americans. The National Kidney Disease Education Program (NKDEP) does not endorse the use of the MDRD equation for patients that are not between the ages of 18 and 70, are , have extremes of body size, muscle mass, or nutritional status, or are non- or non-. According to the National Kidney Foundation, irrespective of diagnosis, the stage of the disease is based on the level of kidney function: Stage Description GFR(mL/min/1.73 m(2)) 1 Kidney damage with normal or decreased GFR 90 2 Kidney damage with mild decrease in GFR 60-89 3 Moderate decrease in GFR 30-59 4 Severe decrease in GFR 15-29 5 Kidney failure <15 (or dialysis) 7 SEE RESULT BELOW Name: NAYAN TORRES : [address]: Mariana Lawler MD Acct: [id number] Unit: [id number] AGE: 39 Location: [facility] Re03/10/15 SEX: F Status: REG REF SPEC: [id number] CÉSAR: 03/10/[address]: Mariana Lawler MD REQ: [id number] RECD: 03/11/15 STATUS: COMP _ SOURCE: MAURA/LIVAN/RE SPDESC: ORDERED: Gloria B Strp Scrn, GBS Sensi QUERIES: Is Patient Penicillin Allergic? Y Is patient penicillin allergic and/or sensitivities needed? Y Provider Requisition # [id number] Procedure Result Verified Site Group B Strep Culture Screen Final 03/13/15- 0832 ML Group B Strep Screen Positive GBS Sensitivity Final 03/14/15- 42 ML Organism 1 STREP AGALACTIAE - (GROUP B) 1. STREP AGALACTIAE - (GROUP B) M.I.C. RX --------- ------ Ampicillin <=0.25 S Penicillin <=0.12 S Clindamycin R Levofloxacin 1 S Linezolid 2 S * Moxifloxacin <=0.25 S * Quinupristin/Dalfopristin <=0.25 S Tetracycline >=16 R Tigecycline <=0.12 S Vancomycin <=0.5 S Imipenem-Deduced S * Ampicillin/Sulbactam-Deduced S Cefazolin-Deduced S CONTINUED ON NEXT PAGE * ML=Testing performed at Main Lab DEPARTMENT OF PATHOLOGY, [address] [place] [address] Agustin Smith M.D. Director [facility] # [id number] Patient: NAYAN TORRES [id number] (Continued) Specimen: [id number] Collected: 03/10/15 Received: 03/11/15 (Continued) Procedure Result Verified Site GBS Sensitivity Final (continued) * These antibiotics are not available in the [facility] Formulary Contact the Microbiology Department for any additional antibiotic reporting. * ML - MAIN LAB ([facility]) . END OF REPORT * ML=Testing performed at Main Lab DEPARTMENT OF PATHOLOGY, [address] [place] [address] Agustin Smith M.D. Director [facility] # [id number] 8 GLU Fast 100 Col: 02/04/15 1117 GLU 1HR 205 Col: 02/04/15 1217 GLU 2HR 179 Col: 02/04/15 1317 GLU 3HR 130 Col: 02/04/15 1417 GLU Interp Col: 02/04/15 1117 GTT normal ranges for obstetrics per the [place] [employer] (ACOG).Based on 100 gm glucose load: Fasting <95 mg/dl 1hr <180 mg/dl 2hr <155 mg/dl 3hr <140 mg/dl 9 SCREEN NEGATIVE FOR OPEN NTD. 10 LESS THAN 1:5000 11 ADJUSTED AFP MOM INTERPRETIVE CUTOFFS: <2.50 ADJUSTED MOM <1.90 ADJUSTED MOM FOR INSULIN-DEPENDENT DIABETES <4.00 ADJUSTED MOM FOR TWINS <3.50 ADJUSTED MOM FOR TWINS INSULIN-DEPENDENT DIABETES <4.50 ADJUSTED MOM FOR TRIPLETS <4.00 ADJUSTED MOM FOR TRIPLETS INSULIN-DEPENDENT DIABETES 12 THE AFP TEST RESULT INDICATES THAT THIS PATIENT IS SCREEN NEGATIVE FOR OPEN NTD. IT SHOULD BE NOTED THAT NORMAL TEST RESULTS CAN NEVER GUARANTEE THE OF A NORMAL BABY AND THAT 2-3% OF [place] HAVE SOME TYPE OF PHYSICAL OR MENTAL DEFECT, MANY OF WHICH ARE UNDETECTABLE THROUGH ANY KNOWN DIAGNOSTIC TECHNIQUE. THE SINGLE AFP MARKER IS NOT RECOMMENDED FOR DOWN SYNDROME AND OTHER CHROMOSOMAL ABNORMALITIES SCREENING. MUCH GREATER SENSITIVITY IS ACHIEVED WITH MULTIPLE MARKERS, SUCH AFP, HCG, UNCONJUGATED ESTRIOL, AND/OR DIMERIC INHIBIN A. WHILE WOMEN 35 YEARS OR OLDER AT THE TIME OF DELIVERY HAVE THE HIGHEST RISK OF HAVING A CHILD WITH DOWN SYNDROME, CURRENT [place] [employer] OF OBSTETRICS AND GYNECOLOGY GUIDELINES (BAD WORK GATHERER 2007 V109 [id number] RECOMMEND THAT "MATERNAL AGE ALONE NO LONGER BE USED A CUT-OFF TO DETERMINE WHO IS OFFERED SCREENING VERSUS WHO IS OFFERED INVASIVE TESTING." GENETIC COUNCELING MAY BE CONSIDERED. THIS IS A SCREENING TEST, NOT A DIAGNOSTIC TEST. THIS RISK ASSESSMENT REPORT IS BASED IN PART ON DEMOGRAPHIC DATA PROVIDED BY THE ORDERING PHYSICIAN. PLEASE NOTIFY THE LAB PROMPTLY IF ANY DATA IS INCORRECT. FOR ASSISTANCE WITH RECALCULATIONS, PLEASE CALL YOUR LOCAL [facility] AT . FOR ASSISTANCE WITH INTERPRETATION OF THESE RESULTS, PLEASE CALL [phone]. 13 REVIEWED BY Nishi LIRA M.D. 14 Therapeutic target for the treatment of diabetes Mellitus patients is <7% HBA1C, and in selective patients <6.0%.Please refer to [place] [employer] Association Diabetic care guidelines for further information. 15 YES 16 It is recognized that currently available assays for the detection of antibodies to HIV-1 and/or HIV-2 may not detect all infected individuals. HIV antibodies may be undetectable in some stages of the infection and in some clinical conditions. The performance of this assay has not been established for populations of infants or children. Assayed by Chemiluminescence Microparticle Immunoassay on the Siemens Advia TabletKioskaur CP. Values obtained with different methods or kits cannot be used interchangeably.The diagnostic specificity of the ADVIA Centaur 1/O/2 Enhanced assay in the low risk population was 99.90% (6052/6058) with a 95% confidence interval of 99.78 to 99.96%. 17 ADVANCED MATERNAL AGE 18 This specimen showed an expected representation of chromosome 21, 18 and 13 material. Clinical correlation is suggested. 19 Consistent with a male fetus. 20 N/A 21 [facility] 22 Circulating cell-free DNA was purified from the plasma component of anti-coagulated maternal whole blood. It was then converted into a genomic DNA library for the determination of chromosome 21, 18, 13 representation and the presence of the Y chromosome.[1] Other chromosomal material, including chromosome 22, 16, sex chromosome (X and Y) representation, and select regions (22q, 15q, 11q, 8q, 5p, 4p, 1p), was also evaluated and will only be reported as an Additional Finding when an abnormality is detected. 23 The [id number] PLUS test analyzes circulating cell-free DNA extracted from a maternal blood sample. The test is indicated for use in women with increased risk for chromosomal aneuploidy. Validation data on twin pregnancies is limited and the ability of this test to detect aneuploidy in a triplet has not yet been validated. 24 The performance characteristics of the [id number] PLUS laboratory-developed test (LDT) have been determined in a clinical validation study with women at increased risk for chromosomal aneuploidy.[1,2,3] 25 Trisomy 21 Sensitivity: 99.1%; CI: 96.3-99.8% Trisomy 21 Specificity: 99.9%; CI: 99.6-99.9% Trisomy 18 Sensitivity: >99.9%; CI: 92.4-100.0% Trisomy 18 Specificity: 99.6%; CI: 99.2-99.8% Trisomy 13 Sensitivity: 91.7%; CI: 59.7-99.6% Trisomy 13 Specificity: 99.7%; CI: 99.3-99.9% Y Chromosome Accuracy: 99.4%; CI: 99.0-99.6% 26 DNA test results do not provide a definitive genetic risk in all individuals. Cell-free DNA does not replace the accuracy and precision of diagnosis with CVS or amniocentesis. A patient with a positive test result or presence of an Additional Finding should be referred for genetic counseling and offered invasive diagnosis for confirmation of test results.[4] A negative test result does not ensure an unaffected . The absence of an Additional Finding does not indicate a negative result. While results of this testing are highly accurate, not all chromosomal abnormalities may be detected due to placental, maternal or mosaicism, or other causes. Sex chromosomal aneuploidies are not reportable for known multiple gestations. The health care provider is responsible for the use of this information in the management of their patient. 27 This test was developed and its performance characteristics determined by [facility]. It has not been cleared or approved by the U.S. FDA. This test is used for clinical purposes. It should not be regarded as investigational or for research. This laboratory is certified under the Clinical Laboratory Improvement Amendments (CLIA) as qualified to perform high complexity clinical laboratory testing and accredited by the College of [place] [employer]. 28 1. Abdirahman ANGLIN, et al. [place] Med. 2012;14(3):296-305. 2. Abdirahman ANGLIN et al. [place] Med. 2011;13(11):913-920. 3. Leonard GUTIERREZ et al. Prenat Diag. 2013;33(6):591-597. 4. ACOG/SMFM Joint Committee Opinion No. 545, Apr 2012. All third constitution party sotomayor (R) and (TM) are property of their respective owner consulting engineer. This test performed at: [facility] [address] [place] [address] Director: Margy Nuñez MD 29 Female urine specimens have been self-validated by [facility] and have been granted conditional assay approval by [facility]. 30 RUN DATE: 09/11/14 [facility] LIVE PAGE 1 RUN TIME: [address] [place] [address] Specimen Inquiry Name: NAYAN TORRES : [address]: Belén Coe NP Acct: [id number] Unit: [id number] AGE: 39 Location: [facility] Re09/09/14 SEX: F Status: REG REF SPEC: [id number] CÉSAR: 09/09/14-[address]: Belén Coe NP REQ: [id number] RECD: 09/09/14-1630 STATUS: SOUT _ ORDERED: IMAGE ANALYSIS FINAL DIAGNOSIS Negative for Intraepithelial lesion or Malignancy A. Ectocervical/Endocervical Specimen Adequacy: Satisfactory of evaluation Transformation zone component identified Patient Information: HPV: Thin Layer Pap Test w/reflex to high risk HPV RNA testing when ASCUS Actual Specimen Date: 09/09/14 LMP If Unknown: 06/2014 Date of Last Specimen: 08/18/13 ?: Y Previous Abnormal Pap Smears?:Y If Yes, enter Diagnosis: Low grade squamous intraepithelial lesion. + HPV Signed (signature on file) LINN Gonzales (ASCP) 09/11 0810 This Pap test was evaluated with the assistance of the ThinPrep Test Imaging System. Due to cytologic findings at the sustainable [employer] faculty microscope, comprehensive manual rescreening by a C D Area Supervisor may be required. The Pap Smear is a screening test designed to aid in the detection of premalignant and malignant conditions of the uterine cervix. It is not a diagnostic procedure and should not be used as the sole means of detecting cervical cancer. Both false- positive and false- negative reports do occur. Depending on your risk status, a Pap smear should be obtained and evaluated every 1-3 years. END OF REPORT * ML=Testing performed at Main Lab DEPARTMENT OF PATHOLOGY, [facility] [place], [place] [address] Agustin Smith M.D. Director [facility] # [id number] 31 RUN DATE: 09/12/14 [facility] LIVE PAGE 1 RUN TIME: [address] [facility] [address] [place], [place] [address] Specimen Inquiry Name: NAYAN TORRES : [address]: Belén Coe NP Acct: [id number] Unit: [id number] AGE: 39 Location: [facility] Re09/09/14 SEX: F Status: REG REF SPEC: [id number] CÉSAR: 09/09/14-[address]: Belén Coe NP REQ: [id number] RECD: 09/09/14-1631 STATUS: COMP _ SOURCE: URINE SPDESC: ORDERED: Urine Culture QUERIES: Provider Requisition # [id number] Procedure Result Verified Site Urine Culture Final 09/12/14- 1143 ML Organism 1 NORMAL LUCA [place] Count 75-100,000 (Many) CFU/ML * ML - MAIN LAB (PSC1) . END OF REPORT * ML=Testing performed at Main Lab DEPARTMENT OF PATHOLOGY, [facility] [place], [place] [address] Agustin Smith M.D. Director [facility] # [id number] 32 RUN DATE: 05/09/14 [facility] LIVE PAGE 1 RUN TIME: [address] [place] [address] Specimen Inquiry Name: NAYAN TORRES : [address]: Mariana Lawler MD Acct: [id number] Unit: [id number] AGE: 39 Location: [facility] Re05/07/14 SEX: F Status: REG REF SPEC: [id number] CÉSAR: 05/07/14-[address]: Mariana Lawler MD REQ: [id number] RECD: 05/07/14 STATUS: COMP _ SOURCE: VAGINAL SPDESC: ORDERED: Genital Culture QUERIES: [facility] Number [id number] Procedure Result Verified Site Genital Culture Final 05/09/14- 920 ML Organism 1 NORMAL LUCA Quantity 2+ END OF REPORT * ML=Testing performed at Main Lab DEPARTMENT OF PATHOLOGY, [address] [place] [address] Agustin Smith M.D. Director [facility] # [id number] 33 <5.0 Negative 5.0 - 25.0 Indeterminate >25.0 Positive 34 <5.0 Negative 5.0 - 25.0 Indeterminate >25.0 Positive 35 SCREENING NOS 36 It is recognized that currently available assays for the detection of antibodies to HIV-1 and/or HIV-2 may not detect all infected individuals. HIV antibodies may be undetectable in some stages of the infection and in some clinical conditions. The performance of this assay has not been established for populations of infants or children. Assayed by Chemiluminescence Microparticle Immunoassay on the Siemens Advia Centaur CP. Values obtained with different methods or kits cannot be used interchangeably.The diagnostic specificity of the ADVIA Centaur 1/O/2 Enhanced assay in the low risk population was 99.90% (6052/6058) with a 95% confidence interval of 99.78 to 99.96%. 37 Because ethnic data is not always readily available, this report includes an eGFR for both -Americans and non- Americans. The National Kidney Disease Education Program (NKDEP) does not endorse the use of the MDRD equation for patients that are not between the ages of 18 and 70, are , have extremes of body size, muscle mass, or nutritional status, or are non- or non-. According to the National Kidney Foundation, irrespective of diagnosis, the stage of the disease is based on the level of kidney function: Stage Description GFR(mL/min/1.73 m(2)) 1 Kidney damage with normal or decreased GFR 90 2 Kidney damage with mild decrease in GFR 60-89 3 Moderate decrease in GFR 30-59 4 Severe decrease in GFR 15-29 5 Kidney failure <15 (or dialysis) 38 Therapeutic target for the treatment of diabetes Mellitus patients is <7% HBA1C, and in selective patients <6.0%.Please refer to [place] [employer] Association Diabetic care guidelines for further information. 39 YES 40 Reference Range: <0.9 Negative 0.9-1.1 Equivocal >1.1 Positive IgG persists for years and provides life-long immunity. Results from any one IgM assay should not be used as a sole determinant of a current or recent infection. Because IgM tests can yield false positive results and low levels of IgM antibody may persist for months post infection, reliance on a single test result could be misleading. If an acute infection is suspected, consider obtaining a new specimen and submit for both IgG and IgM testing in two or more weeks. To diagnose current infection, consider Parvovirus B19 DNA, PCR. 41 42 NEGATIVE; NONE OF THE MUTATIONS LISTED BELOW WERE DETECTED 43 This result does not rule out the presence of a mutation or a diagnosis of cystic fibrosis disease (CF).* The risk for mutations that cause CF other than the ones tested depends greatly on family history, clinical presentation, and ethnicity. Chance of Having a CF Mutation Ethnic Group Detection Before After Negative Rate Test Result [employer] 94% 1 in 24 1 in 400 Non- 88% 1 in 25 1 in 208 -Sudanese 72% 1 in 46 1 in 164 -Sudanese 65% 1 in 65 1 in 186 -Sudanese 49% 1 in 94 1 in 184 Other insufficient data available For assistance with interpretation of these results, please contact your local [facility] genetic counselor or call [facility] ([phone]). 44 G85E (c.254 G>A) 3120+1 G>A(c.2988+1G>A) R334W (c.1000 C>T) 394delTT (c.262_263delTT) V520F (c.1558 G>T) 1717-1 G>A(c.1585-1 G>A) R553X (c.1657 C>T) 1898+1 G>A(c.1766+1 G>A) L4601F(c.3846 G>A) 3659delC (c.3437delC) R347H (c.1040 G>A) 621+1 G>T (c.489+1 G>T) R560T (c.1679 G>C) 3905insT (c.3773_3774insT) I8657F(c.3484 C>T) 2183AA>G (c.2051_2052delAAinsG) W8129K(c.3909 C>G) 711+1 G>T (c.579+1 G>T) R117H (c.350 G>A) A535bwl (c.1519_1521delATC) R347P (c.1040 G>T) 2184delA (c.2052delA) G542X (c.1624 G>T) 3876delA (c.3744delA) A455E (c.1364 C>A) 1078delT (c.948delT) S549N (c.1647 G>A) Y116azh (c.1521_1523delCTT) S549R (c.1646 A>C) 2789+5 G>A(c.2657+5 G>A) G551D (c.1652 G>A) 3849+10kb C>T (c.8840-3173 C>T) This assay detects thirty-two mutations, including the twenty-three core mutations recommended by the [place] [employer] (ACMG) and the [place] College of Obstetricians and Gynecologists (ACOG) for population-based CF carrier screening. Testing for the intron 8 5T polymorphism is performed only when the R117H mutation is detected. Testing for the I506V and I507V polymorphisms is performed only when a homozygous Delta F508 or Delta I507 mutation is detected. In addition to the ACMG/ACOG panel, this assay detects nine additional mutations. While these mutations are rare in the [place] population, the scientific and medical literature indicates that these mutations are not benign polymorphisms. 45 The mutations listed above are detected by an oligonucleotide ligation assay (ASPEN) after multiplex- polymerase chain reaction (PCR) amplification of specific CF gene regions. Fluorescent allele-specific reaction products are detected by capillary electrophoresis. Since genetic variation and other factors can affect the accuracy of direct mutation testing, the results of this testing should always be interpreted in light of clinical and familial data. 46 Clint Ragsdale, Ph.D., [facility] Director, Molecular Genetics The performance characteristics of this assay have been determined by [facility]. Performance characteristics refer to the analytical performance of the test. For more information on this test, go to http://education.Primordial.AppDynamics/faq/cfscreen 47 RUN DATE: 01/22/14 [facility] LIVE PAGE 1 RUN TIME: 10[address] [place], [place] [address] Specimen Inquiry Name: NAYAN TORRES : [address]: Belén Coe NP Acct: [id number] Unit: [id number] AGE: 38 Location: [facility] Re01/20/14 SEX: F Status: REG REF SPEC: [id number] CÉSAR: 01/20/14-[address]: Belén Coe NP REQ: [id number] RECD: 01/20/14 STATUS: COMP _ SOURCE: URINE SPDESC: ORDERED: Urine Culture QUERIES: [employer] Number [id number] Procedure Result Verified Site Urine Culture Final 01/22/14- 1041 ML No Growth Day 2 (<1,000 CFU/mL) END OF REPORT * ML=Testing performed at Main Lab DEPARTMENT OF PATHOLOGY, [facility] [place], [place] [address] Agustin Smith M.D. Director [facility] # [id number] 48 It is recognized that currently available assays for the detection of antibodies to HIV-1 and/or HIV-2 may not detect all infected individuals. HIV antibodies may be undetectable in some stages of the infection and in some clinical conditions. The performance of this assay has not been established for populations of infants or children. Assayed by Chemiluminescence Microparticle Immunoassay on the Siemens Advia Centaur CP. Values obtained with different methods or kits cannot be used interchangeably.The diagnostic specificity of the ADVIA Centaur 1/O/2 Enhanced assay in the low risk population was 99.90% (6052/6058) with a 95% confidence interval of 99.78 to 99.96%. 49 NO 50 NO 51 Warning: A positive result is not useful for establishing a diagnosis of syphilis. In most situations, such a result may reflect a prior treated infection; a negative result can exclude a diagnosis of syphilis except for incubating or early primary disease. 52 RUN DATE: 10/09/13 [facility] LIVE PAGE 1 RUN TIME: [address] [facility] [address] [place], [place] [address] Specimen Inquiry Name: NICOLASNAYAN : [address]: Shiv López MD Acct: [id number] Unit: [id number] AGE: 38 Location: [facility] Re10/07/13 SEX: F Status: REG REF SPEC: [id number] CÉSAR: 10/07/13-[address]: Shiv López MD REQ: [id number] RECD: 10/07/13 STATUS: SOUT _ ORDERED: LEVEL IV/2 FINAL DIAGNOSIS 1. Uterus, cervix, biopsy: Low grade squamous intraepithelial lesion (mild dysplasia, CORAL I) with HPV related changes. 2. Uterus, endocervical curettings: A. Benign, endocervical glandular epithelium and mucosal fragments. B. No squamous component or evidence of dysplasia identified. PRE-OPERATIVE DIAGNOSIS Low grade squamous intraepithelial lesion. GROSS DESCRIPTION 1. The specimen is received in formalin labeled Nayan Torres CBX and consists of a 0.2 x 0.2 x 0.1 cm. toussaint-white, irregular, soft tissue fragment. Submitted entirely, one cassette. 2. The specimen is received in formalin labeled Nayan Torres ECC and consists of a 1.0 x 0.9 x 0.3 cm. aggregate of predominantly blood tinged mucus admixed with scant possible soft tissue fragments. The specimen is filtered and submitted entirely in one cassette. Signed (signature on file) Agustin Smith MD 1320 END OF REPORT * ML=Testing performed at Main Lab DEPARTMENT OF PATHOLOGY, [facility] [place], [place] [address] Agustin Smith M.D. Director [facility] # [id number] 53 RUN DATE: 08/19/13 [facility] LIVE PAGE 1 RUN TIME: [address] [facility] [address] [place], [place] [address] Specimen Inquiry Name: NAYAN TORRES : [address]: Shiv López MD Acct: [id number] Unit: [id number] AGE: 38 Location: [facility] Re08/15/13 SEX: F Status: REG REF SPEC: [id number] CÉSAR: 08/18/13-[address] [facility] [address]: Shiv López MD REQ: [id number] RECD: 08/18/13 STATUS: SOUT _ ORDERED: IMAGE ANALYSIS, PAP SM PATH REV, HPV/Thin Prep FINAL DIAGNOSIS EPITHELIAL CELL ABNORMALITIES Low grade squamous intraepithelial lesion (LSIL) COMMENTS: Specimen sent to [facility] [employer] in [place], [place] on 08/19/13 by [id number] at 1239. Results will be reported separately. A. Ectocervical/Endocervical Specimen Adequacy: Satisfactory of evaluation Transformation zone component identified Patient Information: HPV: High risk HPV DNA testing regardless of pap results. Actual Specimen Date: 08/18/13 Last Menstrual Date: 07/27/13 Date of Last Specimen: 01/17/13 Previous Abnormal Pap Smears?:Y If Yes, enter Diagnosis: Low grade squamous intraepithelial lesion. +HPV Signed (signature on file) Sheree Cabrera MD 06/03 7348 This Pap test was evaluated with the assistance of the ThinPrep Test Imaging System. Due to cytologic findings at the sustainable [employer] faculty microscope, comprehensive manual rescreening by a C D Area Supervisor may be required. The Pap Smear is a screening test designed to aid in the detection of premalignant and malignant conditions of the uterine cervix. It is not a diagnostic procedure and should not be used as the sole means of detecting cervical cancer. Both false- positive and false- negative reports do occur. Depending on your risk status, a Pap smear shoudl be obtained and evaluated every 1-3 years. END OF REPORT * ML=Testing performed at Main Lab DEPARTMENT OF PATHOLOGY, [facility] [place], [place] [address] Agustin Smith M.D. Director [facility] Permit #[id number] RUN DATE: 08/19/13 [facility] LAB LIVE PAGE 1 RUN TIME: [address] [facility] [place], [place] [address] Specimen Inquiry Name: NAYAN TORRES Ana : [address]: Shiv López MD Acct: [id number] Unit: [id number] AGE: 38 Location: [facility] Re08/15/13 SEX: F Status: REG REF SPEC: [id number] CÉSAR: 08/18/13-[address]: Shiv López MD REQ: [id number] RECD: 08/18/13 STATUS: COMP _ SOURCE: THIN SPDESC: ORDERED: BALDEMAR/Evelyn RNA QUERIES: Medent Number [id number] Procedure Result Verified Site Chlamydia Trachomatis RNA Final 08/19/13- 1402 ML NEGATIVE for Chlamydia trachomatis rRNA GC (N. gonorrhoeae) RNA Final 08/19/13- 1402 ML NEGATIVE for Neisseria gonorrhoeae rRNA A negative result does not preclude the presence of a C. trachomatis or N. gonorrhoeae infection because results are dependent on adequate specimen collection, absence of inhibitors, and sufficient rRNA to be detected. Test results may be affected by improper specimen collection, improper storage, technical error, or specimen mixup. Limitations of the Procedure: The Aptima Combo 2 Assay is not intended for the evaluation of suspected sexual abuse or for other medico-legal indications. For those patients for whom a false positive result may have adverse psychosocial impact, the [facility] recommends retesting by a method using an alternate technology. Therapeutic failure or success cannot be determined with the Aptima Combo 2 Assay since nucleic acid may persist following appropriate antimicrobial therapy. Results from the Aptima Combo 2 Assay should be interpreted in conjunction with other laboratory and clinical data available to the clinican. CONTINUED ON NEXT PAGE * ML=Testing performed at Main Lab DEPARTMENT OF PATHOLOGY, [facility] [place], [place] [address] Agustin Smith M.D. Director [facility] Permit #[id number] RUN DATE: 08/19/13 [facility] LAB LIVE PAGE 2 RUN TIME: 1402 [employer] [place], [place] [address] Specimen Inquiry Patient: NAYAN TORRES [id number] (Continued) Specimen: [id number] Collected: 08/18/13 Received: 08/18/13 (Continued) Procedure Result Verified Site GC (N. gonorrhoeae) RNA Final (continued) 08/19/13- 1402 Performance characteristics for detecting C. trachomatis and N. gonorrhoeae are derived from high prevalence populations. Positive results in low prevalence populations should be interpreted carefully with the understanding that the likelihood of a false positive may be higher than a true positive. END OF REPORT * ML=Testing performed at Main Lab DEPARTMENT OF PATHOLOGY, [address] [place] [address] Agustin Smith M.D. Director [facility] Permit #[id number] RESULT: Ectocervical/Endocervical 56 Positive for one or more of the following Other High Risk HPV types: 31, 33, 35, 39, 45, 51, 52, 56, 58, 59, 66, and 68 Test Performed by: [address] [address] Project Financial Analyst: Sujit Doty III, M.D. 57 RUN DATE: 08/25/13 [facility] LAB LIVE PAGE 1 RUN TIME: [address] [place] [address] Specimen Inquiry Name: NAYAN TORRES : [address]: Shiv López MD Acct: [id number] Unit: [id number] AGE: 38 Location: [facility] Re08/15/13 SEX: F Status: REG REF SPEC: [id number] CÉSAR: 08/15/13-[address]: Shiv López MD REQ: [id number] RECD: 08/18/13 STATUS: SOUT _ ORDERED: IMAGE ANALYSIS, PAP SM PATH REV, HPV/Thin Prep THIS IS A CORRECTED REPORT 08/25/13-916 Corrected Report FINAL DIAGNOSIS EPITHELIAL CELL ABNORMALITIES Low grade squamous intraepithelial lesion (LSIL) COMMENTS: Specimen sent to [facility] in [place], [place] on 08/19/13 by [id number] at 1239. Results will be reported separately. Corrected report due to entry of incorrect collection date. A. Ectocervical/Endocervical Specimen Adequacy: Satisfactory of evaluation Transformation zone component identified Patient Information: HPV: High risk HPV DNA testing regardless of pap results. Actual Specimen Date: 08/15/13 Last Menstrual Date: 07/27/13 Date of Last Specimen: 01/17/13 Previous Abnormal Pap Smears?:Y If Yes, enter Diagnosis: Low grade squamous intraepithelial lesion. +HPV Signed Sheree Cabrera MD 12/01 0924 This Pap test was evaluated with the assistance of the Cloud Cruiser Test Imaging System. Due to cytologic findings at the sustainable [employer] faculty microscope, comprehensive manual rescreening by a C D Area Supervisor may be required. The Pap Smear is a screening test designed to aid in the detection of premalignant and malignant conditions of the uterine cervix. It is not a diagnostic procedure and should not be used as the sole means of detecting cervical cancer. Both false- positive and false- negative reports do occur. Depending on your risk status, a Pap smear shoudl be obtained and evaluated every 1-3 years. END OF REPORT * ML=Testing performed at Main Lab DEPARTMENT OF PATHOLOGY, [address] [place] [address] Agustin Smith M.D. Director [facility] Permit #[id number] RUN DATE: 08/25/13 [facility] LAB LIVE PAGE 1 RUN TIME: [address] [place] [address] Specimen Inquiry Name: NAYAN TORRES : [address]: Shiv López MD Acct: [id number] Unit: [id number] AGE: 38 Location: [facility] Re08/15/13 SEX: F Status: REG REF SPEC: [id number] CÉSAR: 08/15/13-[address] [facility] [address]: Shiv López MD REQ: [id number] RECD: 08/18/13 STATUS: COMP _ SOURCE: THIN SPDESC: ORDERED: BALDEMAR/Evelyn RNA QUERIES: Medent Number [id number] Procedure Result Verified Site Chlamydia Trachomatis RNA Final 08/25/13- 38 ML NEGATIVE for Chlamydia trachomatis rRNA GC (N. gonorrhoeae) RNA Final 08/25/13- 38 ML NEGATIVE for Neisseria gonorrhoeae rRNA A negative result does not preclude the presence of a C. trachomatis or N. gonorrhoeae infection because results are dependent on adequate specimen collection, absence of inhibitors, and sufficient rRNA to be detected. Test results may be affected by improper specimen collection, improper storage, technical error, or specimen mixup. Limitations of the Procedure: The Aptima Combo 2 Assay is not intended for the evaluation of suspected sexual abuse or for other medico-legal indications. For those patients for whom a false positive result may have adverse psychosocial impact, the [facility] recommends retesting by a method using an alternate technology. Therapeutic failure or success cannot be determined with the Aptima Combo 2 Assay since nucleic acid may persist following appropriate antimicrobial therapy. Results from the Aptima Combo 2 Assay should be interpreted in conjunction with other laboratory and clinical data available to the clinican. CONTINUED ON NEXT PAGE * ML=Testing performed at Main Lab DEPARTMENT OF PATHOLOGY, [facility] [place], [place] [address] Agustin Smith M.D. Director [facility] Permit #[id number] RUN DATE: 08/25/13 [facility] LAB LIVE PAGE 2 RUN TIME: [address] [place] [address] Specimen Inquiry Patient: NAYAN TORRES [id number] (Continued) Specimen: [id number] Collected: 08/15/13-1545 Received: 08/18/13-1636 (Continued) Procedure Result Verified Site GC (N. gonorrhoeae) RNA Final (continued) 08/25/13937 Performance characteristics for detecting C. trachomatis and N. gonorrhoeae are derived from high prevalence populations. Positive results in low prevalence populations should be interpreted carefully with the understanding that the likelihood of a false positive may be higher than a true positive. END OF REPORT * ML=Testing performed at Main Lab DEPARTMENT OF PATHOLOGY, [facility] [place] [address] Agustin Smith M.D. Director [facility] Permit #[id number] RUN DATE: 01/21/13 [facility] LAB LIVE PAGE 1 RUN TIME: [address] [place] [address] Specimen Inquiry Name: NICOLASNAYAN : [address]: Shiv López MD Acct: [id number] Unit: [id number] AGE: 37 Location: [facility] Re01/17/13 SEX: F Status: REG REF SPEC: [id number] CÉSAR: 01/17/13-[address] [facility] [address]: Shiv López MD REQ: [id number] RECD: 01/21/13 STATUS: SOUT _ ORDERED: IMAGE ANALYSIS, PAP SM PATH REV FINAL DIAGNOSIS EPITHELIAL CELL ABNORMALITIES Low grade squamous intraepithelial lesion (LSIL) COMMENTS: Consider Colposcopy if clinically indicated. A. Ectocervical/Endocervical Specimen Adequacy: Satisfactory of evaluation Transformation zone component identified Patient Information: HPV: Thin Layer Pap Test w/reflex to high risk HPV DNA testing when [facility] Actual Specimen Date: 01/20/13 Last Menstrual Date: 12/23/12 Date of Last Specimen: 02/23/12 Previous Abnormal Pap Smears?:Y If Yes, enter Diagnosis: Low grade squamous intraepithelial lesion. Signed (signature on file) Agustin Smith MD 1538 This Pap test was evaluated with the assistance of the LitehousePrep Test Imaging System. Due to cytologic findings at the [employer] microscope, comprehensive manual rescreening by a C D Area Supervisor may be required. The Pap Smear is a screening test designed to aid in the detection of premalignant and malignant conditions of the uterine cervix. It is not a diagnostic procedure and should not be used as the sole means of detecting cervical cancer. Both false- positive and false- negative reports do occur. Depending on your risk status, a Pap smear shoudl be obtained and evaluated every 1-3 years. END OF REPORT * ML=Testing performed at Main Lab DEPARTMENT OF PATHOLOGY, [facility] [place] [address] Agustin Smith M.D. Director [facility] Permit #[id number] RUN DATE: 06/11/12 [facility] LAB LIVE PAGE 1 RUN TIME: [address] [facility] [employer] [place], [place] [address] Specimen Inquiry Name: NAYAN TORRES : [address]: Shiv López MD Acct: [id number] Unit: [id number] AGE: 37 Location: [facility] Re06/07/12 SEX: F Status: REG REF SPEC: [id number] CÉSAR: 06/07/12-[address] [facility] [address]: Shiv López MD REQ: [id number] RECD: 06/10/12 STATUS: SOUT _ ORDERED: LEVEL IV FINAL DIAGNOSIS Uterus, cervix, biopsy: A. Acute and chronically inflamed cervical transition zone mucosa. B. No dysplasia or HPV effect identified. PRE-OPERATIVE DIAGNOSIS Low grade squamous intraepithelial lesion. GROSS DESCRIPTION The specimen is received in formalin labelled Nayan Torres, Cervix Biopsy , and consists of multiple good, soft tissue fragments measuring 0.4 x 0.3 x 0.1 cm. in aggregate. Submitted entirely, one cassette. Signed (signature on file) Agustin Smith MD 1425 END OF REPORT * ML=Testing performed at Main Lab DEPARTMENT OF PATHOLOGY, [facility] [place], [place] [address] Agustin Smith M.D. Director [facility] Permit #[id number] RUN DATE: 02/29/12 [facility] LAB LIVE PAGE 1 RUN TIME: [address] [place] [address] Specimen Inquiry Name: NAYAN TORRES : [address]: Aubrey Wiseman MD Acct: [id number] Unit: [id number] AGE: 36 Location: [facility] Re02/23/12 SEX: F Status: REG REF SPEC : [id number] RECD: 02/26/12 STATUS: BERONICA ZIEGLER NUM: [id number] CÉSAR: 02/23/[address]: Aubrey Wiseman MD ENTERED: 02/26/12 SP TYPE: CYTOLOGY OT DR: ORDERED: IMAGE ANALYSIS, PAP SM PATH REV, HPV / Thin Prep HiRisk Human Papilloma Virus test results received with preparation and diagnosis completed by [facility] [employer], [place], [place]. Results: POSITIVE High Risk (for one or more of types 16, 18, 31, 33, 35, 39,45, 51, 52, 56, 58 , 59, 68) These high/indeterminate risk HPV types are associated with dysplasia and some cervical cancers. 3FLOZ Hybrid Capture Specimen Transport Media or Cytyc ThinPrep PapTest PreservCyt Solution are the collection systems approved for use with this method by the U.S. Food and Drug Administration. Performance characteristics for AutoCSnipd (SocialRep) collection device have been determined by [facility] , [facility], [place], [place]. It has not been cleared or approved by the U.S. Food and Drug Administration. Test Performed by: [facility] Dpt of Lab Med and Pathology [address] [facility] [address] Project Financial Analyst: Sujit Doty III, M.D. Original hard copy report from [facility] is available upon request by calling Pathology at [phone]. Addendum Signed LINN Bashir (ASCP) 02/28 0821 EPITHELIAL CELL ABNORMALITIES Low grade squamous intraepithelial lesion (LSIL) COMMENTS: Specimen sent to [facility] in [place], [place] on 02/26/12. Results will be reported separately in an Addendum. Consider Colposcopy if clinically indicated A. Ectocervical/Endocervical Specimen Adequacy: CONTINUED ON NEXT PAGE * ML=Testing performed at Main Lab DEPARTMENT OF PATHOLOGY, [facility] [place], [place] [address] Agustin Smith M.D. Director [facility] Permit #[id number] RUN DATE: 02/29/12 [facility] LAB LIVE PAGE 2 RUN TIME: [address] [facility] [employer] [place], [place] [address] Specimen Inquiry Patient: NAYAN TORRES [id number] (Continued) CYTOLOGY ADEQ (Continued) Satisfactory of evaluation Transformation zone component identified Patient Information: Actual Specimen Date: 02/23/12 Last Menstrual Date: 02/09/12 HPV: High risk HPV DNA testing regardless of pap results Signed (signature on file) Agustin Smith MD 5952 This Pap test was evaluated with the assistance of the Cloud Cruiser Test Imaging System. Due to cytologic findings at the [employer] faculty microscope, comprehensive manual rescreening by a C D Area Supervisor may be required. The Pap Smear is a screening test designed to aid in the detection of premalignant and malignant conditions of the uterine cervix. It is not a diagnostic procedure and should not be used as the sole means of detecting cervical cancer. Both false- positive and false- negative reports do occur. Depending on your risk status, a Pap smear shoudl be obtained and evaluated every 1-3 years. END OF REPORT * ML=Testing performed at Main Lab DEPARTMENT OF PATHOLOGY, [facility] [place], [place] [address] Agustin Smith M.D. Director [facility] Permit #[id number] RUN DATE: 02/27/12 [facility] LAB LIVE PAGE 1 RUN TIME: 1408 [address] [place], [place] [address] Specimen Inquiry Name: NAYAN TORRES : [address]: Aubrey Wiseman MD Acct: [id number] Unit: [id number] AGE: 36 Location: [facility] Re02/23/12 SEX: F Status: REG REF SPEC: [id number] CÉSAR: 02/23/[address]: Aubrey Wiseman MD REQ: [id number] RECD: 02/26/12 STATUS: COMP _ SOURCE: FELICE BOUDREAUXESC: ORDERED: GC/Chlam RNA Procedure Result Verified Site Chlamydia Trachomatis RNA Final 02/27/12- 1408 ML NEGATIVE for Chlamydia trachomatis rRNA GC (N. gonorrhoeae) RNA Final 02/27/12- 1408 ML NEGATIVE for Neisseria gonorrhoeae rRNA A negative result does not preclude the presence of a C. trachomatis or N. gonorrhoeae infection because results are dependent on adequate specimen collection, absence of inhibitors, and sufficient rRNA to be detected. Test results may be affected by improper specimen collection, improper storage, technical error, or specimen mixup. Limitations of the Procedure: The Aptima Combo 2 Assay is not intended for the evaluation of suspected sexual abuse or for other medico-legal indications. For those patients for whom a false positive result may have adverse psychosocial impact, the [facility] recommends retesting by a method using an alternate technology. Therapeutic failure or success cannot be determined with the Aptima Combo 2 Assay since nucleic acid may persist following appropriate antimicrobial therapy. Results from the Aptima Combo 2 Assay should be interpreted in conjunction with other laboratory and clinical data available to the clinican. Performance characteristics for detecting C. trachomatis and CONTINUED ON NEXT PAGE * ML=Testing performed at Main Lab DEPARTMENT OF PATHOLOGY, [facility] [place] [address] Agustin Smith M.D. Director [facility] Permit #[id number] RUN DATE: 02/27/12 [facility] LAB LIVE PAGE 2 RUN TIME: [address] [facility] [employer] [place], [place] [address] Specimen Inquiry Patient: NICOLASNAYAN [id number] (Continued) Specimen: [id number] Collected: 02/23/12 Received: 02/26/12 (Continued) Procedure Result Verified Site GC (N. gonorrhoeae) RNA Final (continued) 02/27/12- 1408 N. gonorrhoeae are derived from high prevalence populations. Positive results in low prevalence populations should be interpreted carefully with the understanding that the likelihood of a false positive may be higher than a true positive. END OF REPORT * ML=Testing performed at Main Lab DEPARTMENT OF PATHOLOGY, [address] [place] [address] Agustin Smith M.D. Director [facility] Permit #[id number] 63 For one or more of types 16, 18, 31, 33, 35, 39, 45, 51, 52, 56, 58, 59 and 68. These high/intermediate risk HPV types are associated with dysplasia and some cervical cancers. Test Performed by: [address] [address] Project Financial Analyst: Sujit Doty III, M.D. R 64 results with other results 65 FINAL INTERPRETATION: No HIV antibody is detected. . This information has been disclosed to you from confidential records which are protected by [facility] law. State law prohibits you from making further disclosure of this information without the specific written consent of the person to whom it pertains, or as otherwise permitted by law. Any unauthorized further disclosure in violation of state law may result in a fine or retirement sentence or both. General authorization for the release of medical or other information is not, except in limited circumstances set forth in Part 63, Title 10, of [facility], sufficient authorization for further disclosure. Disclosure of confidential HIV information that occurs as the result of a general authorization for the release of medical or other information will be in violation of the state law and may result in a fine or a retirement sentence. . 66 Warning: A positive result is not useful for establishing a diagnosis of syphilis. In most situations, such a result may reflect a prior treated infection; a negative result can exclude a diagnosis of syphilis except for incubating or early primary disease. 67 INDEX INTERPRETATION ----- LESS THAN 0.90 NEGATIVE FOR ANTIBODIES TO HSV-1 IGG 0.90 - 1.10 EQUIVOCAL GREATER THAN 1.10 POSITIVE THIS ASSAY IS TYPE SPECIFIC AND WILL DIFFERENTIATE BETWEEN HSV-1 AND HSV-2 INFECTIONS. A SINGLE POSITIVE RESULT ONLY INDICATES PREVIOUS IMMUNOLOGIC EXPOSURE AND THE LEVEL OF ANTIBODY RESPONSE MAY NOT BE USED TO DETERMINE ACTIVE INFECTION OR DISEASE STAGE. THE TEST SHOULD BE REPEATED IN 4-6 WEEKS WHEN NEGATIVE OR EQUIVOCAL RESULTS ARE OBTAINED IN SUSPECTED EARLY HERPES SIMPLEX DISEASE. THE PERFORMANCE OF THIS ASSAY HAS NOT BEEN ESTABLISHED FOR PEDIATRIC POPULATIONS, FOR SCREENING, OR FOR THE TESTING OF IMMUNOCOMPROMISED PATIENTS. 68 INDEX INTERPRETATION ----- LESS THAN 0.90 NEGATIVE FOR ANTIBODIES TO HSV-2 IGG 0.90 - 1.10 EQUIVOCAL GREATER THAN 1.10 POSITIVE THIS ASSAY IS TYPE SPECIFIC AND WILL DIFFERENTIATE BETWEEN HSV-1 AND HSV-2 INFECTIONS. A SINGLE POSITIVE RESULT ONLY INDICATES PREVIOUS IMMUNOLOGIC EXPOSURE AND THE LEVEL OF ANTIBODY RESPONSE MAY NOT BE USED TO DETERMINE ACTIVE INFECTION OR DISEASE STAGE. THE TEST SHOULD BE REPEATED IN 4-6 WEEKS WHEN NEGATIVE OR EQUIVOCAL RESULTS ARE OBTAINED IN SUSPECTED EARLY HERPES SIMPLEX DISEASE. THE PERFORMANCE OF THIS ASSAY HAS NOT BEEN ESTABLISHED FOR PEDIATRIC POPULATIONS, FOR SCREENING, OR FOR THE TESTING OF IMMUNOCOMPROMISED PATIENTS. 69 Reference range: NOT DETECTED 70 Results sent with other test results 71 NEGATIVE FOR CHLAMYDIA TRACHOMATIS rRNA A negative result does not preclude the presence of a C.trachomatis or N.gonorrhoeae infection because results are dependent on adequate specimen collection, absence of inhibitors, and sufficient rRNA to be detected. Test results may be affected by improper specimen collection, improper specimen storage, technical error, or specimen mixup. 72 ---- RUN DATE: 05/04/10 [facility] LIVE PAGE 1 RUN TIME: 1403 Specimen Inquiry RUN USER: INTERFACE -- Name: NAYAN TORRES Status: REG REF Re05/03/10 Age/Sex: 35/F Unit#: [id number] [facility] -- Specimen: [id number] BERONICA Spec Date: 05/03/[address]: Africa bloom MD Spec Type: CYTOLOGY Received: 05/04/10-0863 Copies to: SOURCE ECTOCERVICAL/ENDOCERVICAL Thin Prep with Reflex HPV Test PATIENT INFORMATION ACTUAL COLLECTION DATE: 05/03/10 ? No POST MENOPAUSAL? No LAST MENSTRUAL PERIOD: 04/08/10 DATE OF PRIOR SPECIMEN: 02/01/09 ADEQUACY OF SPECIMEN Satisfactory for evaluation * Transformation zone component identified * DIAGNOSIS NEGATIVE FOR INTRAEPITHELIAL LESION OR MALIGNANCY * This Pap test was evaluated with the assistance of the LitehousePrep Pap Test Imaging System. The Pap Smear is a screening test designed to aid in the detection of premalign ant and malignant conditions of the uterine cervix. It is not a diagnostic procedure a nd should not be used as the sole means of detecting cervical cancer. Both false- positiv e and false-negative reports do occur. Depending on your risk status, a Pap smear bennett uld be obtained and evaluated every one to three years. Initial evaluation performed by Jaswinder MELENDEZ(ASCP) 05/04/10 Final Interpretation electronically signed by: Jaswinder MELENDEZ(ASCP) 05/04/10 1403 -- -- DEPARTMENT OF PATHOLOGY, [address] [place] [address] [facility] Permit #[id number] Agustin Smith M.D. Director Talib Ronquillo M.D. Duct Installer Dir bud -- 73 NEGATIVE FOR NEISSERIA GONORRHOEAE rRNA A negative result does not preclude the presence of a C.trachomatis or N.gonorrhoeae infection because results are dependent on adequate specimen collection, absence of inhibitors, and sufficient rRNA to be detected. Test results may be affected by improper specimen collection, improper specimen storage, technical error, or specimen mixup. 74 ---- RUN DATE: 02/02/09 [facility] LIVE PAGE 1 RUN TIME: 1235 Specimen Inquiry RUN USER: INTERFACE -- Name: NAYAN TORRES Status: REG REF Re02/01/09 Age/Sex: 33/F Unit#: [id number] Location: [facility]. : [birth year] -- Specimen: [id number] SOUT Spec Date: 02/01/[address]: Shiv barraza MD Spec Type: CYTOLOGY Received: 02/02/09 Copies to: SOURCE ECTOCERVICAL/ENDOCERVICAL Thin Prep with Reflex HPV Test PATIENT INFORMATION ACTUAL COLLECTION DATE: 02/01/09 PREVIOUS ABNORMAL PAP SMEARS No LAST MENSTRUAL PERIOD: 12/31/08 DATE OF PRIOR SPECIMEN: 12/05/07 ADEQUACY OF SPECIMEN Satisfactory for evaluation * Transformation zone component identified * DIAGNOSIS NEGATIVE FOR INTRAEPITHELIAL LESION OR MALIGNANCY * This Pap test was evaluated with the assistance of the ThinPrep Pap Test Imaging System. The Pap Smear is a screening test designed to aid in the detection of premalign ant and malignant conditions of the uterine cervix. It is not a diagnostic procedure a nd should not be used as the sole means of detecting cervical cancer. Both false- positiv e and false-negative reports do occur. Depending on your risk status, a Pap smear bennett uld be obtained and evaluated every one to three years. Initial evaluation performed by Jaswinder MELENDEZ(ASCP) 02/02/09 Final Interpretation electronically signed by: Jaswinder MELENDEZ(ASCP) 02/02/09 0345 -- -- DEPARTMENT OF PATHOLOGY, [address] [place] [address] [facility] Permit #[id number] Soina Null M.D. Duct Installer Dir caror -- 75 ---- RUN DATE: 11/29/06 [facility] NMI LIVE PAGE 1 RUN TIME: 1234 Specimen Inquiry RUN USER: INTERFACE [id number] NAYAN TORRES 31/F <REG REF 11/27> ([id number]) KEANU López MDChauncey -- Specimen: [id number] SOUT Spec Date: 11/27/[address]: Shiv barraza MD Spec Type: CYTOLOGY Received: 11/28/06-1155 Copies to: SOURCE ECTOCERVICAL/ENDOCERVICAL Thin Prep with Reflex HPV Test PATIENT INFORMATION ACTUAL COLLECTION DATE: 11/27/06 HYSTERECTOMY? No PREVIOUS ABNORMAL PAP SMEARS No LAST MENSTRUAL PERIOD: 10/21/06 DATE OF PRIOR SPECIMEN: 12/14/05 ADEQUACY OF SPECIMEN Satisfactory for evaluation * Transformation zone component identified * DIAGNOSIS NEGATIVE FOR INTRAEPITHELIAL LESION OR MALIGNANCY * This Pap test was evaluated with the assistance of the [employer] Pap Test Imaging System. The Pap Smear is a screening test designed to aid in the detection of premalign ant and malignant conditions of the uterine cervix. It is not a diagnostic procedure a nd should not be used as the sole means of detecting cervical cancer. Both false- positive and false-negative reports do occur. Depending on your risk status, a Pap smear bennett uld be obtained and evaluated every one to three years. Initial evaluation performed by Jaswinder MELENDEZ(ASCP) 11/29/06 Final Interpretation electronically signed by: Jaswinder MELENDEZ(ASCP) 11/29/06 1234 -- -- DEPARTMENT OF PATHOLOGY, [address] [place] [address] [facility] Permit #[id number] Boris Ovalles II, M.D. Director Sonia Null -- 76 ---- RUN DATE: 08/24/06 [facility] NMI LIVE PAGE 1 RUN TIME: 1609 Specimen Inquiry RUN USER: INTERFACE [id number] NAYAN TORRES / <REG REF 08/23> ([id number]) KESHIA Barros MD, Chrissie Lopez -- Specimen: [id number] BERONICA Spec Date: 08/23/[address]: Wai lowry MD Spec Type: SURGICAL P Received: 08/23/06-7639 Copies to: [place] alexander MD SPECIMEN RIGHT BREAST NODULE HISTORY CLINICAL INFORMATION: Present many years with recent pain GROSS DESCRIPTION The specimen is received in formalin labelled Nayan Torres, Right Breast Nodule, and consists of a single, 0.6 x 0.4 x 0.3 cm. rubbery, pink-good nodule. There is no orienting device. Bisected, total, one block. DIAGNOSIS Breast, right, excision - Benign dermal neuroma. Signed Electronically by: AGUSTIN SMITH MD 08/24/06 -- -- DEPARTMENT OF PATHOLOGY, [address] [place] [address] [facility] Permit #[id number] Boris Ovalles II, M.D. Director Sonia Null irector -- 77 ---- RUN DATE: 12/19/05 [facility] NMI TEST PAGE 1 RUN TIME: 1237 Specimen Inquiry RUN USER: INTERFACE [id number] NAYAN TORRES / <REG REF 12/14> ([id number]) Shiv Fagan MD. -- Specimen: [id number] SOUT Spec Date: 12/14/[address]: Chauncey López MD. Spec Type: CYTOLOGY Received: 12/18/05-0801 Copies to: SOURCE ECTOCERVICAL/ENDOCERVICAL Thin Prep with Reflex HPV Test PATIENT INFORMATION ACTUAL COLLECTION DATE: 12/14/05 PREVIOUS ABNORMAL PAP SMEARS Yes If YES, diagnosis: LGSIL DATE OF PRIOR SPECIMEN: 12/09/04 PREVIOUS CYTOLOGY/SURGICAL SPECIMEN #: [id number] Low grade squamous intraepithelial lesion. Colposcopy ADEQUACY OF SPECIMEN Satisfactory for evaluation * Transformation zone component identified * DIAGNOSIS NEGATIVE FOR INTRAEPITHELIAL LESION OR MALIGNANCY * The Pap Smear is a screening test designed to aid in the detection of premalign ant and malignant conditions of the uterine cervix. It is not a diagnostic procedure an d should not be used as the sole means of detecting cervical cancer. Both false-positive and false-negative reports do occur. Depending on your risk status, a Pap smear bennett uld be obtained and evaluated every one to three years. Signed Wayne PERALTA CT([facility]) 12/19/05 -- -- DEPARTMENT OF PATHOLOGY, [address] [place] [address] [facility] Permit #[id number] Boris Ovalles II, M.D. Director Sonia Null -- Procedures Date Code Description Status 2015 83686 Obstetric Care Routine Completed 04/01/2015 47606 Non-Stress Test Completed 03/25/2015 69528 Biophysical Profile W/ NST Completed 03/25/2015 03774 Echography Uterus Follow-Up Or Repeat Completed 03/16/2015 20456 Injection Intramuscular Or Subcutaneous Completed 03/16/2015 25912 Non-Stress Test Completed 03/10/2015 16525 Non-Stress Test Completed 03/04/2015 83760 Non-Stress Test Completed 02/25/2015 75905 Non-Stress Test Completed 01/18/2015 67604 Echography Uterus Limited Completed 12/31/2014 02039 Echography Uterus Follow-Up Or Repeat Completed 12/01/2014 23223 Echography Uterus Complete Completed 09/09/2014 52989 OB Ultrasound First Trimester Completed 02/10/2014 86035 Echography Transvaginal Completed 01/20/2014 64639 OB Ultrasound First Trimester Completed 10/07/2013 70238 Colposcopy W/Biopsy Cervix/Endocervical Curettage Completed 06/07/2012 88658 Colposcopy W/Biopsy Cervix/Endocervical Curettage Completed 05/19/2003 24200 Colposcopy W/Biopsy Cervix/Endocervical Curettage Completed Encounters Type Date Location Provider Dx Diagnosis Office Visit 11/29/2017 [facility] Shiv López, Z01.411 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 10:20a M.DTherese (general) (routine) w abnormal findings Z30.011 Encounter for initial prescription of contraceptive pills Office Visit 03/29/2016 3:00p [facility] Belén Coe, B37.3 Candidiasis of vulva 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 Office Visit 09/22/2015 2:00p [facility] Shiv Lopez Z30.8 Encounter for other Sonia López contraceptive management Office Visit 02/26/2015 3:30p [facility] Belén Coe, O24.414 Gestational diabetes ASSOCIATE PROFESSOR OF BIOLOGY in , insulin controlled Office Visit 05/07/2014 10:00a [facility] Bucky, 616.10 Vaginitis & MD Mariana Vulvovaginitis Unspec Office Visit 04/06/2014 1:00p [facility] Bucky V26.41 Procflores Peña MD Counseling & Advice Using Natural Family Plan Office Visit 02/12/2014 11:00a [facility] Bucky 632 Missed MD Mariana Office Visit 02/10/2014 1:00p [facility] Marcelo Madsen 632 Missed CNM Office Visit 08/15/2013 3:00p [facility] Shiv Lopez V13.22 Personal HX Of Sonia López Cervical Dysplasia V74.5 Screening Examination Venereal Disease V26.9 Procreative Management Unspec Office Visit 01/17/2013 3:20p [facility] Shiv Lopez V13.22 Personal HX Of Sonia López Cervical Dysplasia Office Visit 02/23/2012 1:00p [facility] Aubrey Wiseman V72.31 Routine Cigar Tobacco Processing Supervisor MD Examination V76.2 Screening Malignant Neoplasm Cervix Office Visit 01/12/2012 3:00p [facility] Aubrey Wiseman, 624.8 Vulva & Perineum MD Disorder Noninflammatory Spec Other 112.1 Candidiasis The Vulva & Vagina V76.41 Screening Malignant Neoplasm Rectum Office Visit 05/03/2010 10:00a [facility] [place] Maya V72.31 Routine Cigar Tobacco Processing Supervisor MChandana Examination V25.09 Contraceptive Management Other V76.2 Screening Malignant Neoplasm Cervix 783.1 Weight Gain Abnormal V74.5 Screening Examination Venereal Disease 079.4 Human Papilloma Virus Office Visit 02/01/2009 11:20a [facility] Shiv Lopez V72.31 Routine Cigar Tobacco Processing Supervisor Sonia López Examination V76.2 Screening Malignant Neoplasm Cervix Office Visit 12/05/2007 1:00p [facility] Shiv Lopez V72.31 Routine Cigar Tobacco Processing Supervisor Sonia López Examination V76.2 Screening Malignant Neoplasm Cervix Office Visit 11/27/2006 8:20a [facility] Shiv Lopez V72.31 Routine Cigar Tobacco Processing Supervisor Sonia López Examination V76.2 Screening Malignant Neoplasm Cervix Office Visit 03/02/2006 1:20p [facility] Demar Bullard 616.10 Vaginitis & Sonia MOODY Vulvovaginitis Unspec Office Visit 12/14/2005 2:40p [facility] Shiv Lopez V72.31 Routine Cigar Tobacco Processing Supervisor Sonia López Examination V76.2 Screening Malignant Neoplasm Cervix 616.0 Cervicitis & Endocervicitis Office Visit 02/13/2005 3:20p [facility] Belén Guardado, 616.10 Vaginitis & C.N.M Vulvovaginitis Unspec Office Visit 12/09/2004 1:00p [facility] Shiv Willson2.31 Routine Cigar Tobacco Processing Supervisor Sonia López Examination V72.41 Test Negative Office Visit 08/17/2004 1:00p [facility] Shiv López, 622.11 Mild Dysplasia M.D. Cervix Office Visit 02/10/2004 12:45p [facility] Shiv López, 622.1 Dysplasia Cervix M.D. (Uteri) 611.72 Lump Or Mass Breast 788.1 Dysuria Office Visit 11/05/2003 1:00p [facility] Nanyc Gutierrez 611.72 Lump Or Mass Breast CNM Office Visit 09/07/2003 1:40p [facility] Shiv Lopez 622.1 Dysplasia Cervix Sonia López (Uteri) Office Visit 05/19/2003 1:15p [facility] Shiv Lopez 622.1 Dysplasia Cervix Sonia López (Uteri) Office Visit 04/24/2003 9:00a [facility] Jamarcus Fitzgerald, 616.10 Vaginitis & C.N.M. Vulvovaginitis Unspec Office Visit 04/01/2003 1:00p [facility] Andreea Dent V72.3 Examination CNM Gynecological Office Visit 03/25/2003 9:00a [facility] Anna Trammell, 112.9 Candidiasis Unspec ANP-C Site V72.4 Examination Or Test Unconfirmed Office Visit 12/25/2002 11:00a [facility] Mikki V25.09 Contraceptive Bharath, C.N.M. Management Other Plan of Treatment No Information Available
[2018-03-29 19:22] VITALS: BP 158/83
--- NOTE | 2018-03-29 19:55 | UC ---
General HPI - HPI Summary HPI Summary: 42 yo with PMH of HTN, anxiety and history of preeclampsia who states that on she hit the top of her head on a wooden beam of a hay wagon. She states she was walking very slowly following her toddler and that it did not seem to be high impact. Since then she states having nausea, headache and dizziness on/ off. Headache is on the frontal area, on and off; she also states she has some scalp sensitivity even when her toddler taps on her head. She denies vomiting, decrease in apetite or nausea triggered by food intake. LMD 03-21-18. She states dizziness is not dependant on activity, posture or follows any pattern. Objects do not seem to be in motion. She is able to drive and carry on with usual activities. Denies any memory loss. About 6 weeks ago she had a physical exam and states all her tests are normal. She had an endometrial biopsy 2 days ago and states dizziness has ever since recurred. She is concerned about all these symptoms and fears that her body is telling her something is wrong. - History of Current Complaint Chief Complaint: UCHeadache Stated Complaint: NAUSEA,WHITNEY Time Seen by Provider: 03/29/18 19:48 Hx Obtained From: Patient Hx Last Menstrual Period: 03/21/18 Onset/Duration: Sudden Onset Onset Severity: Mild Current Severity: Mild Pain Intensity: 4 - Allergy/Home Medications Allergies/Adverse Reactions: Allergies Allergy/AdvReac Type Severity Reaction Status Date / Time Penicillins Allergy Anaphylatic Verified 03/29/18 19:23 Shock sulfamethoxazole Allergy Palpitation Verified 03/29/18 19:23 [From Bactrim] s trimethoprim [From Bactrim] Allergy Palpitation Verified 03/29/18 19:23 s vancomycin Allergy Hives/Diff. Verified 03/29/18 19:23 Breathing/I tching clarithromycin [From Biaxin] AdvReac Unknown Verified 03/29/18 19:23 Reaction Details PMH/Surg Hx/FS Hx/Imm Hx Previously Healthy: Yes - Surgical History Surgical History: Yes Surgery Procedure, Year, and Place: R toe surgery. - Family History Known Family History: Positive: Hypertension - Social History Alcohol Use: Rare Substance Use Type: None Smoking Status (MU): Former Smoker Type: Cigarettes Amount Used/How Often: 3 cig./day Have You Smoked in the Last Year: No When Did the Patient Quit Smoking/Using Tobacco: 2013 - Immunization History Most Recent Influenza Vaccination: unknown Most Recent Tetanus Shot: 03/04 Most Recent Pneumonia Vaccination: never Review of Systems All Other Systems Reviewed And Are Negative: Yes Gastrointestinal: Positive: Nausea Neurological: Positive: Headache, Other - dizziness Physical Exam Triage Information Reviewed: Yes Appearance: Well-Appearing, No Pain Distress, Well-Nourished Vital Signs: Initial Vital Signs Temp 97.5 F 03/29/18 19:09 Pulse 61 03/29/18 19:09 Resp 15 03/29/18 19:09 BP 158/83 03/29/18 19:09 Pulse Ox 100 03/29/18 19:09 Vital Signs Reviewed: Yes Eyes: Positive: Conjunctiva Clear ENT: Positive: Hearing grossly normal, Pharynx normal, TMs normal, Uvula midline Neck: Positive: Supple, Nontender, No Lymphadenopathy Respiratory: Positive: Chest non-tender, Lungs clear, Normal breath sounds, No respiratory distress Cardiovascular: Positive: RRR, No Murmur, Pulses Normal, Brisk Capillary Refill Abdomen Description: Positive: Nontender, No Organomegaly, Soft Bowel Sounds: Positive: Present Musculoskeletal: Positive: Strength Intact, ROM Intact, No Edema Neurological Exam: Other - CN II - XII grossly intact, romberg negative, sensory intact, gait is normal, FROMx4, strength is preserved. Neurological: Positive: Alert, Muscle Tone Normal, Other: Skin Exam: Normal Course/Dx - Course Course Of Treatment: Discussed with patient the findings of normal neurological exam and physical exam. She has history of minor head trauma which usually would not produce any sequelae. Patient states she had blood tests about 6 weeks ago and they did not reveal any abnormalities; she denies any findings of anemia at that time. D/w patient that symptomatic treatment will be given and that condition may be self limited. In case of persistence f/u with PCP and consideration might be given to imaging. - Differential Dx - Multi-Symptom Provider Diagnoses: Dizziness and nausea. History of minor head trauma. HTN Discharge - Sign-Out/Discharge Documenting (check all that apply): Patient Departure All imaging exams completed and their final reports reviewed: No Studies - Discharge Plan Condition: Stable Disposition: HOME Patient Education Materials: Dizziness (ED), Meclizine (By mouth), Ondansetron (By mouth) Referrals: Asaf Mendoza MD [Primary Care Provider] - - Billing Disposition and Condition Condition: STABLE Disposition: Home
== END 2018-03-29 20:39 | disposition home or self-care (01) ==
LOC: UCCORT 18:32
DX: R42 Dizziness and giddiness (principal); R11.0 Nausea; R51 Headache; I10 Essential (primary) hypertension; Z87.828 Personal history of other (healed) physical injury and trauma; Z88.0 Allergy status to penicillin; Z88.2 Allergy status to sulfonamides; Z88.1 Allergy status to other antibiotic agents; Z87.891 Personal history of nicotine dependence
CPT/HCPCS: 99212; G0463

== ENCOUNTER 2018-10-02 16:32 | Emergency (ER) | payer OTHER ==
[2018-10-02 18:55] VITALS: BP 148/88
--- NOTE | 2018-10-02 19:13 | UC ---
UC General HPI - HPI Summary HPI Summary: 43-year-old woman comes in with a chief complaint of dizziness and elevated blood pressure. Over the last several days patient's had diarrhea and vomiting. Because of that she decreased her blood pressure medication. She improved and was starting to eat and drink again and she had some stressful news. And she felt dizzy and unwell. Checked her blood pressure was high. Patient feels improved here in clinic. No chest pain no shortness of breath no pedal edema. Patient is on hypertension medicine with her primary care doctor. - History of Current Complaint Chief Complaint: UCDizziness Stated Complaint: DIZZY Time Seen by Provider: 10/02/18 18:50 Hx Last Menstrual Period: 1 week ago Pain Intensity: 0 - Allergy/Home Medications Allergies/Adverse Reactions: Allergies Allergy/AdvReac Type Severity Reaction Status Date / Time Penicillins Allergy Anaphylatic Verified 10/02/18 17:08 Shock sulfamethoxazole Allergy Palpitation Verified 10/02/18 17:08 [From Bactrim] s trimethoprim [From Bactrim] Allergy Palpitation Verified 10/02/18 17:08 s vancomycin Allergy Hives/Diff. Verified 10/02/18 17:08 Breathing/I tching clarithromycin [From Biaxin] AdvReac Unknown Verified 10/02/18 17:08 Reaction Details Home Medications: Home Medications Lisinopril TAB* [Prinivil TAB*] 5 mg PO DAILY 10/02/18 [History Confirmed ] PMH/Surg Hx/FS Hx/Imm Hx Previously Healthy: Yes Cardiovascular History: Hypertension - Surgical History Surgical History: Yes Surgery Procedure, Year, and Place: R toe surgery. - Family History Known Family History: Positive: Hypertension - Social History Alcohol Use: Rare Substance Use Type: None Smoking Status (MU): Former Smoker Type: Cigarettes Amount Used/How Often: 3 cig./day Have You Smoked in the Last Year: No When Did the Patient Quit Smoking/Using Tobacco: 2013 - Immunization History Most Recent Influenza Vaccination: unknown Most Recent Tetanus Shot: 03/04 Most Recent Pneumonia Vaccination: never Review of Systems All Other Systems Reviewed And Are Negative: Yes Constitutional: Positive: Other - SEE HPI Skin: Positive: Negative Eyes: Positive: Negative ENT: Positive: Negative Respiratory: Positive: Negative Cardiovascular: Positive: Negative Gastrointestinal: Positive: Other - SEE HPI Motor: Positive: Negative Neurovascular: Positive: Negative Musculoskeletal: Positive: Negative Neurological: Positive: Negative Psychological: Positive: Anxious Is Patient Immunocompromised?: No Physical Exam Triage Information Reviewed: Yes Appearance: Well-Appearing, No Pain Distress, Well-Nourished Vital Signs: Initial Vital Signs Temp 99 F 10/02/18 16:51 Pulse 65 10/02/18 16:51 Resp 17 10/02/18 16:51 BP 166/69 10/02/18 16:51 Pulse Ox 100 10/02/18 16:51 Vital Signs Reviewed: Yes Eye Exam: Normal Eyes: Positive: Conjunctiva Clear Neck: Positive: Supple Respiratory: Positive: Lungs clear, Normal breath sounds, No respiratory distress Cardiovascular: Positive: RRR Musculoskeletal Exam: Normal Musculoskeletal: Positive: Strength Intact, ROM Intact, No Edema - NO CALF TENDERNESS Neurological Exam: Normal Neurological: Positive: Muscle Tone Normal Psychological Exam: Normal Psychological: Positive: Age Appropriate Behavior Skin Exam: Normal Course/Dx - Course Course Of Treatment: Patient is in no acute distress other than some anxiety and clinic. Patient's initial blood pressure did go down when she was relaxed. He went back up after she got on her phone which she stated made her more anxious. Overall the plan is to follow-up the primary care doctor reevaluate sooner if worse or any questions or concerns. - Diagnoses Provider Diagnosis: Dizziness, Hypertension Discharge - Sign-Out/Discharge Documenting (check all that apply): Patient Departure All imaging exams completed and their final reports reviewed: No Studies - Discharge Plan Condition: Stable Disposition: HOME Patient Education Materials: Hypertension (ED), Dizziness (ED) Referrals: Asaf Mendoza MD [Primary Care Provider] - Additional Instructions: FOLLOW UP WITH YOUR DOCTOR. GET RECHECKED SOONER IF YOUR CONDITION WORSENS OR ANY QUESTIONS OR CONCERNS. - Billing Disposition and Condition Condition: STABLE Disposition: Home
== END 2018-10-02 19:20 | disposition home or self-care (01) ==
LOC: UCEAST 16:32
DX: R42 Dizziness and giddiness (principal); I10 Essential (primary) hypertension; R19.7 Diarrhea, unspecified; R11.10 Vomiting, unspecified; Z87.891 Personal history of nicotine dependence; Z79.899 Other long term (current) drug therapy; Z88.0 Allergy status to penicillin; Z88.1 Allergy status to other antibiotic agents; Z88.2 Allergy status to sulfonamides
CPT/HCPCS: 99211; G0463

== ENCOUNTER 2019-05-13 17:02 | Emergency (ER) | payer OTHER ==
--- OUTSIDE RECORDS SUMMARY | 2019-05-13 17:16 | XMS REPORT | Summary of Care ---
:1975 Author Organization [facility] Address [address] [facility] [place] [address] Care Team Providers Name Role Phone Asaf Mendoza Primary Care Provider Reason for Visit Reason Comments Sore Throat c/o sore throat x3 days with sinusitis x5 days and fatigue. Denies fever. Encounter Details Date Type Department Care Team Description 03/22/2019 Office Visit [facility] Asaf Mendoza MD Acute non-recurrent Practice [address] [facility] ethmoidal sinusitis [address] [place] [address] (Primary Dx) [place] [address] [phone] Allergies Active Allergy Reactions Severity Noted Date Comments Clarithromycin Unknown Reaction 07/30/2007 Bleach Rash 10/10/2007 Ceftizoxime Unknown Reaction 07/30/2007 Penicillins Hives 07/30/2007 Vancomycin Hives 12/17/2017 documented as of this encounter (statuses as of 03/22/2019) Medications Medication Sig Dispensed Refills Start Date End Date Status ALPRAZolam (XANAX) 0.25 Take 1 Tab by 30 Tab 0 01/04/2017 Active MG Oral TabIndications: mouth THREE TIMES Stress DAILY NEEDED for anxiety. Max Daily Amount: 0.75 mg. lisinopril (PRINIVIL, Take 1 Tab by 30 Tab 5 10/24/2018 Active ZESTRIL) 5 MG Oral Tab mouth DAILY. nadolol (CORGARD) 40 MG Take 1 Tab by 30 Tab 5 10/24/2018 Active Oral TabIndications: mouth DAILY. Hypertension, unspecified type IBUPROFEN 200 PO Take 3 Tabs by 0 Active mouth NEEDED. 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 Contact dermatitis and other eczema, due to unspecified cause 07/31/2007 Depression 07/30/2007 Irritable bowel syndrome 07/30/2007 Dysplasia of Cervix 07/30/2007 Allergic Rhinitis 07/30/2007 Anxiety documented as of this encounter (statuses as of 03/22/2019) Resolved Problems Problem Noted Date Resolved Date Anxiety State 07/30/2007 11/01/2017 documented as of this encounter (statuses as of 03/22/2019) Social History Tobacco Use Types Packs/Day Years Used Date Former Smoker Cigarettes 0.01 2 Quit: 03/21/2014 Smokeless Tobacco: Never Used Alcohol Use Drinks/Week oz/Week Comments Yes Only drinks occasionally-maybe once every 2-3 months Sex Assigned at Date Recorded Not on file Job Start Date Occupation Industry Not on file Not on file Not on file Travel History Travel Start Travel End No recent travel history available. documented as of this encounter Last Filed Vital Signs Vital Sign Reading Time Taken Comments Blood Pressure 142/82 03/22/2019 10:06 AM EDT Pulse 90 03/22/2019 10:06 AM EDT Temperature 37.3 03/22/2019 10:06 AM EDT C (99.2 F) Respiratory Rate 18 03/22/2019 10:06 AM EDT Oxygen Saturation - - Inhaled Oxygen Concentration - - Weight 79.8 kg (176 lb) 03/22/2019 10:06 AM EDT Height 161.3 cm (5' 3.5") 03/22/2019 10:06 AM EDT Body Mass Index 30.69 03/22/2019 10:06 AM EDT documented in this encounter Patient Instructions Patient InstructionsAsaf Mendoza MD - 03/22/2019 10:00 AM EDTCoricidin HBP, mucinex, claritin all safe for high blood pressure If thick mucinex If a drip the other 2 documented in this encounter Progress Notes Asaf Mendoza MD - 03/22/2019 10:00 AM EDT PATIENT: Carissa Torres : 1975 DATE OF SERVICE: 03/22/2019 CHIEF COMPLAINT: Chief Complaint Patient presents with Sore Throat c/o sore throat x3 days with sinusitis x5 days and fatigue. Denies fever. Subjective HISTORY OF PRESENT ILLNESS: Carissa Torres is a 43-y.o. female. Not feel well x [address] in the beginning, lost voice in the middle, was copious colored mucus , not a bad WHITNEY but feels pressure and little dizzy. The voice is back and discharge is less . Still + loss of energy, loss of appetite Past Medical History: Diagnosis Date Allergic Rhinitis 07/30/2007 dust mites Anxiety Depression 07/30/2007 Dysplasia of Cervix 07/30/2007 positive HPV s/p Leep Gestational diabetes Hypertension failed HCTZ due to hypokalemia, stable on ACEI, normal UA 02/25 Irritable bowel syndrome 07/30/2007 Family History Problem Relation Age of Onset Cancer Father non-hodgkins lymphoma GI Brother Diabetes Unknown grandmother Current Outpatient Medications Medication Sig ALPRAZolam (XANAX) 0.25 MG Oral Tab Take 1 Tab by mouth THREE TIMES DAILY NEEDED for anxiety. Max Daily Amount: 0.75 mg. IBUPROFEN 200 PO Take 3 Tabs by mouth NEEDED. lisinopril (PRINIVIL, ZESTRIL) 5 MG Oral Tab Take 1 Tab by mouth DAILY. nadolol (CORGARD) 40 MG Oral Tab Take 1 Tab by mouth DAILY. No current facility-administered medications for this visit. Allergies Allergen Reactions Biaxin [Clarithromycin] Unknown Reaction Bleach Rash Ceftizoxime Unknown Reaction Pcn [Penicillins] Hives Vancomycin Hives Social History Socioeconomic History Marital status: Single Spouse name: Not on file Number of children: Not on file Years of education: Not on file Highest education level: Not on file Occupational History Not on file Social Needs Financial resource strain: Not on file Food insecurity: Worry: Not on file Inability: Not on file Transportation needs: Medical: Not on file Non-medical: Not on file Tobacco Use Smoking status: Former Smoker Packs/day: 0.01 Years: 2.00 Pack years: 0.02 Types: Cigarettes Last attempt to quit: 03/21/2014 Years since quittin.0 Smokeless tobacco: Never Used Substance and Sexual Activity Alcohol use: Yes Comment: Only drinks occasionally-maybe once every 2-3 months Drug use: No Sexual activity: Yes Partners: Male Lifestyle Physical activity: Days per week: Not on file Minutes per session: Not on file Stress: Not on file Relationships Social connections: Talks on phone: Not on file Gets together: Not on file Attends hindu service: Not on file Active member of club or organization: Not on file Attends meetings of clubs or organizations: Not on file Relationship status: Not on file Intimate partner violence: Fear of current or ex partner: Not on file Emotionally abused: Not on file Physically abused: Not on file Forced sexual activity: Not on file Other Topics Concern Back Care Not Asked Bike Helmet Not Asked Blood Transfusions Not Asked Caffeine Concern Not Asked Exercise Not Asked Hobby Hazards Not Asked International Travel Not Asked Service Not Asked Occupational Exposure Not Asked Seat Belt Not Asked Self-Exams Not Asked Sleep Concern Not Asked Special Diet Not Asked Stress Concern Not Asked Weight Concern Not Asked Social History Narrative 2 children at home. REVIEW OF SYSTEMS: ROS Objective PHYSICAL EXAM: VITALS: BP 142/82 (BP Location: Left arm, Patient Position: Sitting) | Pulse 90 | Temp 99.2 F(37.3 C) | Resp 18 | Ht 5' 3.5" (1.613 m) | Wt 176 lb (79.8 kg) | BMI 30.69 kg/m Body mass index is 30.69 kg/m. Physical Exam Vitals signs reviewed. Constitutional: Appearance: She is not ill-appearing. HENT: Ears: Comments: Ears - bilateral TM's and external ear canals normal, right external ear normal, left externalear normal Mouth/Throat: Mouth: No oral lesions. Pulmonary: Effort: Pulmonary effort is normal. No respiratory distress. Breath sounds: Normal breath sounds. Lymphadenopathy: Cervical: Cervical adenopathy (mild ) present. ASSESSMENT / IMPRESSION: ICD-9-CM ICD-10-CM 1. Acute non-recurrent ethmoidal sinusitis 461.2 J01.20 Getting better, hold on antibiotics Patient Instructions Coricidin HBP, mucinex, claritin all safe for high blood pressure If thick mucinex If a drip the other 2 Plan Author: Asaf Mendoza MD 03/22/2019 10:24 documented in this encounter Plan of Treatment Health Maintenance Due Date Last Done Comments DIABETES SCREENING 12/22/2018 12/22/2017, 12/28/2016, 11/30/2016, Additional history exists LIPID DISORDER SCREENING 12/22/2018 12/22/2017, 02/25/2008, 10/09/2005 INFLUENZA VACCINE (#1) 2019 MAMMOGRAM (SCREENING) 08/23/2019 08/22/2018 DEPRESSION SCREENING 02/11/2020 02/10/2019 PAP SMEAR 11/19/2020 11/19/2017, 10/20/2011 (Previously completed), 01/27/2009 (Previously completed) HPV IMMUNIZATION SERIES Aged Out No longer eligible based on patient's age to complete this topic MENINGOCOCCAL VACCINE IMM Aged Out No longer eligible based on patient's age to complete this topic PNEUMOCOCCAL 0-64 YRS Aged Out No longer eligible based on patient's age to complete this topic documented as of this encounter Goals Goal Patient Goal Associated Recent Patient-Stated? Author Type Problems Progress Blood Pressure Blood Pressure 142/82 No Reji, < 140/90 (03/22/2019 MD Asaf 10:06 AM EDT) Note: This is an individualized treatment (blood pressure) goal for Carissa Torres : Displayed above (on the left) is your goal for blood pressure control. Your most recent blood pressure is also shown above, on the right. You should try to achieve blood pressures that are lower than your goal listed above (on the left). Depression screen (PHQ-9) total score < 5 Depression No Asaf Mendoza MD Note: This is an individualized treatment (depression) goal for Carissa Torres: Displayed above is your goal for a depression screening (PHQ-9) score that would indicate good control of your depression. Keep a regular sleep schedule Lifestyle No Asaf eMndoza MD Note: This is an individualized lifestyle goal for Carissa Torres: Please maintain a regular sleep schedule. This may help with some symptoms of depression. Weight loss vs. 18 mo max Lifestyle 0 (03/22/2019 10:06 AM EDT) No Asaf Mendoza MD (lbs) >= 10 Note: This is an individualized lifestyle goal for Carissa Torres: Your body mass index (BMI) is more than 30. You should lose weight. A reasonable starting goal is to lose 10 pounds. Displayed above is how many pounds you have lost thus far towards your 10 pound weight loss goal. Take all prescribed medications as directed Self-management No Asaf Mendoza MD Note: This is an individualized self-management goal for Carissa Torres: Please take all prescribed medications as directed. 1. Do not skip doses. If you cannot afford your medications, talk with your doctor. 2. Use a pill reminder system such as a pill box if needed. Your pharmacist can help you with this. 3. Contact your Pharmacy 5 days before your medication runs out. If you cannot take your medications for any reasons, talk with your doctor. 4. Please bring all of your medication bottles and inhalers (or a list of all your medications/inhalers) with you to every visit. Potential barriers to meeting all of your care plan goals will continue to be addressed on an ongoing basis. documented as of this encounter Results Not on filedocumented in this encounter Visit Diagnoses Diagnosis Acute non-recurrent ethmoidal sinusitis - Primary documented in this encounter Insurance Payer Benefit Plan / Subscriber ID Effective Dates Phone Address Type Group [employer] [facility] xxxxxxxxxxx 2016-Present Phillip Guarantor Name Account Type Relation to Date of Phone Billing Patient Address Carissa Torres Personal/Family 1975 [address] (Home) [phone] [place], [place] (Work) [id number] documented as of this encounter
[2019-05-13 17:23] VITALS: BP 170/94
[2019-05-13] MEDS ORDERED: Clindamycin CAP* 150 MG PO ONE ×2 (17:38→17:47)
--- NOTE | 2019-05-13 17:38 | UC ---
Dental HPI - HPI Summary HPI Summary: dental pain x 5 days located at right lower back molar pain is 5 out 10 , worse with chewing, better with heat mild swelling , no fever, no chills - History of Current Complaint Chief Complaint: UCDentalProblem Stated Complaint: DENTAL COMPLAINT Time Seen by Provider: 05/13/19 17:27 Hx Obtained From: Patient Hx Last Menstrual Period: 1 week ago ?: No Onset/Duration: Gradual Onset, Lasting Days - 5, Still Present Severity: Moderate Pain Intensity: 2 Aggravating Factor(s): Chewing Alleviating Factor(s): OTC Meds Dental: 1 - tenderness - Allergies/Home Medications Allergies/Adverse Reactions: Allergies Allergy/AdvReac Type Severity Reaction Status Date / Time Penicillins Allergy Anaphylatic Verified 10/02/18 17:08 Shock sulfamethoxazole Allergy Palpitation Verified 10/02/18 17:08 [From Bactrim] s trimethoprim [From Bactrim] Allergy Palpitation Verified 10/02/18 17:08 s vancomycin Allergy Hives/Diff. Verified 10/02/18 17:08 Breathing/I tching clarithromycin [From Biaxin] AdvReac Unknown Verified 10/02/18 17:08 Reaction Details PMH/Surg Hx/FS Hx/Imm Hx Cardiovascular History: Hypertension - Surgical History Surgical History: Yes Surgery Procedure, Year, and Place: R toe surgery. - Family History Known Family History: Positive: Hypertension - Social History Alcohol Use: Rare Substance Use Type: None Smoking Status (MU): Former Smoker Type: Cigarettes Amount Used/How Often: 3 cig./day Have You Smoked in the Last Year: No When Did the Patient Quit Smoking/Using Tobacco: 2013 - Immunization History Most Recent Influenza Vaccination: unknown Most Recent Tetanus Shot: 03/04 Most Recent Pneumonia Vaccination: never Review of Systems All Other Systems Reviewed And Are Negative: Yes ENT: Positive: Dental Pain Is Patient Immunocompromised?: No Physical Exam Triage Information Reviewed: Yes Appearance: Well-Appearing, No Pain Distress, Well-Nourished Vital Signs: Initial Vital Signs Temp 97.8 F 05/13/19 17:16 Pulse 59 05/13/19 17:16 Resp 18 05/13/19 17:16 BP 170/94 05/13/19 17:16 Pulse Ox 100 05/13/19 17:16 Vital Signs Reviewed: Yes Eye Exam: Normal ENT: Positive: Normal ENT inspection, Hearing grossly normal, Pharynx normal Dental: Positive: Gross Decay/Caries @ - # 28 Neck exam: Normal Neck: Positive: Supple, Nontender Respiratory: Positive: Chest non-tender, Lungs clear Cardiovascular: Positive: RRR, No Murmur, Pulses Normal Skin Exam: Normal Dental Complaint Course/Dx - Differential Dx/Diagnosis Provider Diagnosis: Pain, dental Discharge ED - Sign-Out/Discharge Documenting (check all that apply): Patient Departure All imaging exams completed and their final reports reviewed: No Studies - Discharge Plan Condition: Stable Disposition: HOME Prescriptions: Clindamycin Cap(NF) [Clindamycin Cap 300 mg Cap(NF)] 300 mg PO TID #30 cap Patient Education Materials: Toothache (ED) Referrals: Asaf Mendoza MD [Primary Care Provider] - If Needed Additional Instructions: follow up with your Dentist - Billing Disposition and Condition Condition: STABLE Disposition: Home
== END 2019-05-13 17:56 | disposition home or self-care (01) ==
LOC: UCCORT 17:02
DX: K08.89 Other specified disorders of teeth and supporting structures (principal); I10 Essential (primary) hypertension; Z88.0 Allergy status to penicillin; Z88.1 Allergy status to other antibiotic agents; Z88.2 Allergy status to sulfonamides; Z87.891 Personal history of nicotine dependence
CPT/HCPCS: 99212; A9270-GY; G0463